=== PATIENT | male | born 1955 | race Caucasian/White ===

== ENCOUNTER → 2016-06-18 | Outpatient (REF) ==
[~2016-06-18] MED LIST: HCT25T PO; LISI40TA PO; VERA40TA2 PO
--- NOTE | 2016-06-18 17:20 | Diagnostic Imaging Report ---
PROCEDURE: MRI left joint lower extremity without contrast. TECHNIQUE: Multiplanar, multisequence non contrast-enhanced MRI of the left lower extremity was accomplished. INDICATION: Left knee pain. FINDINGS: There is a small suprapatellar effusion. There is a East's cyst measuring 3.2 x 0.8 x 4.6 cm with mild septation and loculation seen superiorly. The distal patellar tendon demonstrates ossification with increased signal suggestive of an old injury and tendinosis. There is tendinosis in the distal quadriceps tendon. The ACL and the PCL are both intact. There is a complex tear involving the posterior horn of the medial meniscus with some extension into the posterior aspect of the body of the meniscus. The anterior horn is intact. The lateral meniscus demonstrates no definite tear. There are intact appearing components of the lateral collateral ligament complex. The medial collateral ligament demonstrates mild thickening with no definite tear. This is probably sequela of an old injury. Near complete loss of cartilage in the patella along the lateral facet and at the mid portion is seen with relatively preserved cartilage in the medial facet. Subchondral reactive changes are seen in the lateral and mid aspects of the patella and along the femoral trochlea correlating region. The medial compartment demonstrates generalized approximately 50% narrowing of the cartilage, and relatively preserved cartilage is seen at the lateral compartment. There is abnormal marrow signal in the tibial spine along the insertion of the ACL. This could be injury related or from mucinous degeneration. IMPRESSION: 1. 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 2. Complex tear in the posterior horn of the medial meniscus extending to the meniscus body. 3. Bone marrow edema in the tibial spine along the ACL insertion could be post traumatic. Dictated by: Dictated on workstation # [id number]
== END | disposition home or self-care (01) ==
LOC: RAD 16:07
PROVIDERS: ATTEND Nurse Practitioner Family
CPT/HCPCS: 73721

== ENCOUNTER 2018-01-15 07:29 | Emergency (ER) | payer BC, OTHER ==
[~2018-01-15] VITALS: Ht 177.8 cm; Wt 108.0 kg
[2018-01-15] MEDS ORDERED: NITROGLYCERIN 0.4 MG SL TABS BTL 25'S SL ONE (07:35)
[2018-01-15] MEDS ORDERED: ASPIRIN 81 MG CHEW (CHILDREN'S ASA) ONE (07:36)
--- NOTE | 2018-01-15 07:38 | ED Chest Pain ---
General Chief Complaint: Chest Pain Stated Complaint: CP Source: patient, other Exam Limitations: no limitations History of Present Illness Date Seen by Provider: Jan 15, 2018 Time Seen by Provider: 07:26 Initial Comments Patient presents the ER by private conveyance with a chief complaint of some chest pain substernal nonradiating with pressure and burning sensation that started around midnight last night. He says he's had this before similar to this and he thought it was indigestion so he took some Pepcid and it did not help. His pain continued to get worse and is having a little shortness of breath , sweats and nausea with one episode of vomiting. He does take 81 mg aspirin daily and has a history of hypertension. He quit smoking in the 70s. He does not have hypothyroidism, hypercholesterolemia, history of coronary artery disease or significant family history. Other than the Pepcid this morning he has not taken anything medicine breen. Allergies and Home Medications Allergies Coded Allergies: No Known Drug Allergies (Unverified , 06/18/11) Home Medications Hydrochlorothiazide 25 Mg Tab, 25 MG PO DAILY, (Reported) Verapamil Hcl 40 Mg Tablet, 1 EA PO DAILY, (Reported) Patient Home Medication List Home Medication List Reviewed: Yes Review of Systems Constitutional: No chills; diaphoresis; No fever, No malaise EENTM: No Blurred Vision, No Double Vision Respiratory: Denies Cough, Denies Shortness of Air Cardiovascular: See HPI, Chest Pain; Denies Edema, Denies Irregular Heart Rate , Denies Palpitations, Denies Syncope Gastrointestinal: Denies Abdomen Distended, Denies Abdominal Pain, Denies Constipated, Denies Diarrhea Genitourinary: Denies Burning, Denies Discharge, Denies Drainage Musculoskeletal: No back pain, No joint pain Skin: No change in color, No dryness, No pruritus, No rash Psychiatric/Neurological: Denies Headache, Denies Numbness Past Nxvtxhs-Rfktvj-Dhoosx Hx Patient Social History Recreational Drug Use: No Smoking Status: Former Smoker Type Used: Cigarettes Physical Exam Vital Signs Vital Signs - First Documented 01/15/18 01/15/18 07:36 07:51 Temp 97.9 Pulse 60 Resp 20 B/P (MAP) 206/100 (135) Pulse Ox 97 O2 Delivery Room Air O2 Flow Rate 2.00 Capillary Refill : Height, Weight, BMI Height: '" Weight: lbs. oz. kg; BMI Method:Stated General Appearance: WD/WN, Mild Distress HEENT: PERRL/EOMI, Pharynx Normal, Moist Mucous Membranes Neck: Full Range of Motion, Normal Inspection Respiratory: Chest Non Tender, Lungs Clear, Normal Breath Sounds, No Accessory Muscle Use, No Respiratory Distress Cardiovascular: Regular Rate, Rhythm, No Edema, Normal Peripheral Pulses Gastrointestinal: Normal Bowel Sounds, No Organomegaly, Non Tender, Soft, Other (negative for Lundberg sign, psoas, other mesenteric signs.) Extremity: Normal Capillary Refill, Non Tender, No Calf Tenderness, No Pedal Edema Neurologic/Psychiatric: Alert, Oriented x3 Skin: Normal Color, Warm/Dry Progress/Results/Core Measures Results/Orders Lab Results Laboratory Tests Test 01/15/18 07:40 01/15/18 10:52 Range/Units White Blood Count 9.4 4.3-11.0 10^3/uL Red Blood Count 5.05 4.35-5.85 10^6/uL Hemoglobin 16.0 13.3-17.7 G/DL Hematocrit 43 40-54 % Mean Corpuscular Volume 86 80-99 FL Mean Corpuscular Hemoglobin 32 25-34 PG Mean Corpuscular Hemoglobin Concent 37 H 32-36 G/DL Red Cell Distribution Width 13.5 10.0-14.5 % Platelet Count 170 130-400 10^3/uL Mean Platelet Volume 11.9 H 7.4-10.4 FL Neutrophils (%) (Auto) 82 H 42-75 % Lymphocytes (%) (Auto) 11 L 12-44 % Monocytes (%) (Auto) 6 0-12 % Eosinophils (%) (Auto) 0 0-10 % Basophils (%) (Auto) 0 0-10 % Neutrophils # (Auto) 7.7 1.8-7.8 X 10^3 Lymphocytes # (Auto) 1.1 1.0-4.0 X 10^3 Monocytes # (Auto) 0.6 0.0-1.0 X 10^3 Eosinophils # (Auto) 0.0 0.0-0.3 10^3/uL Basophils # (Auto) 0.0 0.0-0.1 10^3/uL Prothrombin Time 13.8 12.2-14.7 SEC INR Comment 1.1 0.8-1.4 Activated Partial Thromboplast Time 30 24-35 SEC Sodium Level 139 135-145 MMOL/L Potassium Level 2.9 L 3.6-5.0 MMOL/L Chloride Level 99 98-107 MMOL/L Carbon Dioxide Level 28 21-32 MMOL/L Anion Gap 12 5-14 MMOL/L Blood Urea Nitrogen 17 7-18 MG/DL Creatinine 1.20 0.60-1.30 MG/DL Estimat Glomerular Filtration Rate > 60 BUN/Creatinine Ratio 14 Glucose Level 172 H 70-105 MG/DL Calcium Level 10.4 H 8.5-10.1 MG/DL Corrected Calcium 8.5-10.1 MG/DL Magnesium Level 2.1 1.8-2.4 MG/DL Total Bilirubin 1.3 H 0.1-1.0 MG/DL Aspartate Amino Transf (AST/SGOT) 38 H 5-34 U/L Alanine Aminotransferase (ALT/SGPT) 55 0-55 U/L Alkaline Phosphatase 78 40-136 U/L Myoglobin 86.2 10.0-92.0 NG/ML Troponin I < 0.30 < 0.30 <0.30 NG/ML Total Protein 8.4 H 6.4-8.2 GM/DL Albumin 4.9 H 3.2-4.5 GM/DL Lipase 14 8-78 U/L My Orders Orders - JOSE ANTONIO,CINDY J Cbc With Automated Diff (01/15/18 07:35) Magnesium (01/15/18 07:35) Chest 1 View, Ap/Pa Only (01/15/18 07:35) Ekg Tracing (01/15/18 07:35) Cardiac Profile 1 (01/15/18 07:35) Comprehensive Metabolic Panel (01/15/18 07:35) Myoglobin Serum (01/15/18 07:35) Protime With Inr (01/15/18 07:35) Partial Thromboplastin Time (01/15/18 07:35) O2 (01/15/18 07:35) Monitor-Rhythm Ecg Trace Only (01/15/18 07:35) Lipid Panel (01/16/18 06:00) Aspirin Chewable Tablet (Baby Aspirin Ch (01/15/18 07:45) Nitroglycerin 0.4 Mg Btl 25's (Nitrostat (01/15/18 07:45) Saline Lock/Iv-Start (01/15/18 07:35) Lipase (01/15/18 07:35) Ondansetron Injection (Zofran Injectio (01/15/18 07:45) Nitroglycerin 0.4 Mg Btl 25's (Nitrostat (01/15/18 07:35) Aspirin Chewable Tablet (Baby Aspirin Ch (01/15/18 07:36) Saline Lock/Iv-Start (01/15/18 07:54) Ns Iv 500 Ml (Sodium Chloride 0.9%) (01/15/18 07:54) Hydralazine Injection (Apresoline Inject (01/15/18 08:15) Labetalol Injection (Normodyne Injection (01/15/18 08:15) Potassium Chloride (Tablet) (K Dur Table (01/15/18 08:30) Potassium Cl 10meq/50ml Ivpb (Kcl 10 Meq (01/15/18 08:30) Ct Angio Chest W (01/15/18 08:17) Iohexol Injection (Omnipaque 350 Mg/Ml 1 (01/15/18 08:45) Ns (Ivpb) (Sodium Chloride 0.9%) (01/15/18 08:45) Pharmacy Communication (Pharmacy Communi (01/15/18 08:45) Lidocaine 2% Viscous 15 Ml (Xylocaine Vi (01/15/18 09:45) Antacid Suspension (Mylanta Suspension (01/15/18 09:45) Famotidine Tablet (Pepcid Tablet) (01/15/18 09:38) Troponin I (01/15/18 10:20) Medications Given in ED Current Medications Medications Dose Ordered Sig/Mallory Route Start Time Stop Time Status Last Admin Dose Admin Al Hydrox/Mg Hydrox/Simethicone 30 ml ONCE ONCE PO 01/15/18 09:45 01/15/18 09:46 DC 01/15/18 09:47 30 ML Aspirin 81 mg STK-MED ONCE .ROUTE 01/15/18 07:36 01/15/18 07:38 DC 01/15/18 07:38 81 MG Hydralazine HCl 10 mg ONCE ONCE IV 01/15/18 08:15 01/15/18 08:16 DC 01/15/18 08:20 10 MG Iohexol 125 ml ONCE ONCE IV 01/15/18 08:45 01/15/18 08:47 DC 01/15/18 09:24 125 ML Labetalol HCl 10 mg ONCE ONCE IV 01/15/18 08:15 01/15/18 08:16 DC 01/15/18 08:20 10 MG Lidocaine HCl 15 ml ONCE ONCE PO 01/15/18 09:45 01/15/18 09:46 DC 01/15/18 09:47 15 ML Nitroglycerin 0.4 mg STK-MED ONCE SL 01/15/18 07:35 01/15/18 07:38 DC 01/15/18 07:39 0.4 MG Ondansetron HCl 4 mg ONCE ONCE IVP 01/15/18 07:45 01/15/18 07:46 DC 01/15/18 07:44 4 MG Potassium Chloride 20 meq ONCE ONCE PO 01/15/18 08:30 01/15/18 08:31 DC 01/15/18 08:30 20 MEQ Potassium Chloride 50 ml @ 50 mls/hr ONCE ONCE IV 01/15/18 08:30 01/15/18 09:29 DC 01/15/18 08:30 50 MLS/HR Sodium Chloride 250 ml ONCE ONCE IV 01/15/18 08:45 01/15/18 08:47 DC 01/15/18 09:24 80 ML Sodium Chloride 500 ml @ 0 mls/hr Q0M ONCE IV 01/15/18 07:54 01/15/18 07:55 DC 01/15/18 08:01 500 MLS/HR Vital Signs/I&O 01/15/18 01/15/18 01/15/18 01/15/18 07:36 07:38 07:51 08:50 Temp 97.9 97.9 Pulse 60 Resp 20 B/P (MAP) 206/100 (135) Pulse Ox 97 97 O2 Delivery Room Air Nasal Cannula Nasal Cannula O2 Flow Rate 2.00 2.0 Progress Progress Note #1: Time: 07:40 Progress Note We'll give him 324 mg aspirin, nitroglycerin to start and if that does not help we'll consider a GI cocktail. He does have several risk factors but his pain isn 't going on since midnight. EKG is unremarkable right now so we will see what the troponin shows. We'll get a chest x-ray. No recent surgeries or periods of immobilization nor is he having hemoptysis or cough or shortness of breath and he is 100% sat on room air so a pulmonary embolism as clinically very unlikely. He has a history of hypertension and smoking so AAA is always possible. Top and the differential be a cardiogenic source versus gastroesophageal distress. He does not have any history of pulmonary disease sweats less likely source of his pain. This chest wall is nontender to palpation so musculoskeletal also less likely. ED ACS 19 points. Not low risk. This patient is not a candidate for early discharge and should receive a standard chest pain evaluation with delayed troponin testing. 0748: After the first dose of nitroglycerin his blood pressures down from 206 systolic to 174 systolic and his pain is down from a 10 to a 5. We are going to give him a second dose of nitroglycerin. His chest x-ray reveals a very widened mediastinum which is concerning for AAA. There is no previous chest imaging to compare to so we will plan to get a CT angiogram of the chest soon as we get his creatinine function back. We will start with a half liter bolus to help dilute the contrast. Despite his heart rate being 55 beta tony still hour first choice to control his hypertension. Plan to give him labetalol 10 mg. If he is having aortic dissection that our goal would be to get his blood pressure down around 100 systolic and it is currently 157. His pain is now effectively 0 after the second dose of nitroglycerin. No evidence on the CBC or clinical exam of extravasation. Progress Note #2: Time: 10:01 Progress Note The GI cocktail did help the patient's pain significantly. He said his pain also in his belly and chest Better when he got up and walked to the bathroom and back. He says it is starting to come back a little bit low in his belly. He describes it as a burning sensation. Initial ECG Impression Date: Jan 15, 2018 Initial ECG Impression Time: 07:32 Initial ECG Rate: 60 Initial ECG Rhythm: Normal Sinus Initial ECG Intervals: Normal Initial ECG Impression: Normal Initial ECG Comparisson: Unchanged Comment No acute ST elevation or depression. Diagnostic Imaging Diagonstic Imaging: Xray Plain Films/CT/US/NM/MRI: chest (1v) Comments Cardiomegaly and a prominent mediastinum. [facility] [place], [place] NAME: CARITO LANCASTER [facility] REC#: [id number] PT STATUS: REG ER : 1955 PHYSICIAN: CINDY BRADY MD ADMIT DATE: 01/15/18/ER Draft Date of Exam:01/15/18 CHEST 1 VIEW, AP/PA ONLY INDICATION: Chest pain. Nausea, sweats. TECHNIQUE: Single view chest 7:51 AM. CORRELATION STUDY: None FINDINGS: Heart size enlarged and vasculature within normal limits. Question of slight fullness to the right paramediastinal region superiorly. Minimal atelectasis or less likely infiltrate at the right perihilar region. IMPRESSION: 1. Cardiac enlargement without evidence for failure. 2. Questionable soft tissue density of the right superior paramediastinal region. This may reflect ectatic vessels. Would, however, recommend a followup two-view chest imaging for reassessment. 3. Minimal right perihilar atelectasis. Dictated on workstation # [id number] Dict: 01/15/18 0800 Trans: 01/15/[address] [place] [address] [id number] Interpreted by: DEJUAN JON DO Electronically signed by: Reviewed: Reviewed by Nd Diagonstic Imaging: CT (angio) Plain Films/CT/US/NM/MRI: chest Comments VIA [facility]. [place], [place] NAME: CARITO LANCASTER [facility] REC#: [id number] PT STATUS: REG ER : 1955 PHYSICIAN: CINDY BRADY MD ADMIT DATE: 01/15/18/ER Draft Date of Exam:01/15/18 CT ANGIO CHEST W PROCEDURE: CT angiography of the chest with contrast. TECHNIQUE: Multiple contiguous axial images were obtained through the chest after uneventful bolus administration of intravenous contrast. Reconstructed CTA MIP acquisitions were also performed. INDICATION: Chest pain and abdominal pain. No prior studies are available for comparison. Evaluation of the pulmonary arterial system is without evidence of thromboembolism. No filling defects are seen within the central, lobar or segmental branches. The thoracic aorta is normal caliber. No dissection is seen. No pericardial or pleural fluid is identified. No pulmonary infiltrate, nodule or mass is seen. Central airways are unremarkable. Upper abdomen does show hepatic steatosis. No other abnormality is seen. IMPRESSION: 1. No evidence of pulmonary embolism or thoracic aortic dissection. No acute features seen. 2. Hepatic steatosis. Dictated on workstation # [id number] Dict: 01/15/18937 Trans: 01/15/18942 [facility] [id number] Interpreted by: RAMIREZ GUTIÉRREZ MD Electronically signed by: Reviewed: Reviewed by Me Consults : Consulting Physician: Gerry LLAMAS MD Consults Notes After discussing lab EKG imaging he requests a repeat set of troponins and if they're negative just follow up in the clinic. Departure Communication (Admissions) Discussed case lab imaging findings EKG with Dr. Llamas. Impression Primary Impression: Chest pain Qualified Codes: R07.9 - Chest pain, unspecified Disposition: HOME, SELF-CARE Condition: Stable Admissions Decision to Admit Reason: Admit from ER (General) Decision to Admit/Date: Jan 15, 2018 Time/Decision to Admit Time: 09:57 Departure-Patient Inst. Decision time for Depature: 12:07 Referrals: ISABEL CHAND (PCP) Primary Care Physician Gerry LLAMAS MD Patient Instructions: Chest Pain (DC) Add. Discharge Instructions: Follow-up the purchasing officer outpatient by calling his office today to get an appointment. Continue to take your medications for blood pressure. Return to the ER for chest pain shortness breath etc. All discharge instructions reviewed with patient and/or family. Voiced understanding. Copy Copies To 1: Gerry LLAMAS MD, TITUS J Jan 15, 2018 07:37
[2018-01-15] MEDS ORDERED: ONDANSETRON 4 MG/2 ML (SDV) Z0FRAN IVP ONE (07:45)
[2018-01-15] MEDS ORDERED: NITROGLYCERIN 0.4 MG SL TABS BTL 25'S SL PRN (07:45)
[2018-01-15] MEDS ORDERED: ASPIRIN 81 MG CHEW (CHILDREN'S ASA) PO ONE (07:45)
[2018-01-15 07:51] LABS: BASOPHILS % (AUTO) 0 % (0-10); EOSINOPHILS % (AUTO) 0 % (0-10); HEMATOCRIT 43 % (40-54); LYMPHOCYTES # (AUTO) 1.1 X 10^3 (1.0-4.0); LYMPHOCYTES % (AUTO) 11 % (12-44); MEAN CORPUSCULAR HEMOGLOBIN 32 PG (25-34); MEAN CORPUSCULAR HGB CONC 37 G/DL (32-36); MEAN CORPUSCULAR VOLUME 86 FL (80-99); MEAN PLATELET VOLUME 11.9 FL (7.4-10.4); MONOCYTES # (AUTO) 0.6 X 10^3 (0.0-1.0); MONOCYTES % (AUTO) 6 % (0-12); NEUTROPHILS # (AUTO) 7.7 X 10^3 (1.8-7.8); NEUTROPHILS % (AUTO) 82 % (42-75); PLATELET COUNT 170 10^3/uL (130-400); RED BLOOD COUNT 5.05 10^6/uL (4.35-5.85); RED CELL DISTRIBUTION WIDTH 13.5 % (10.0-14.5); WHITE BLOOD COUNT 9.4 10^3/uL (4.3-11.0)
[2018-01-15] MEDS ORDERED: NS IV 500 ML 500 ML IV ONE (07:54)
[2018-01-15 08:03] LABS: INR 1.1 (0.8-1.4); PROTHROMBIN TIME PATIENT 13.8 SEC (12.2-14.7)
[2018-01-15 08:07] LABS: ALANINE AMINOTRANSFERASE 55 U/L (0-55); ALBUMIN 4.9 GM/DL (3.2-4.5); ALKALINE PHOSPHATASE 78 U/L (40-136); BILIRUBIN,TOTAL 1.3 MG/DL (0.1-1.0); BUN/CREATININE RATIO 14; CALCIUM 10.4 MG/DL (8.5-10.1); CARBON DIOXIDE 28 MMOL/L (21-32); CHLORIDE 99 MMOL/L (98-107); GFR ESTIMATED > 60; GLUCOSE 172 MG/DL (70-105); LIPASE 14 U/L (8-78); MAGNESIUM 2.1 MG/DL (1.8-2.4); POTASSIUM 2.9 MMOL/L (3.6-5.0); SODIUM 139 MMOL/L (135-145); TOTAL PROTEIN 8.4 GM/DL (6.4-8.2)
--- NOTE | 2018-01-15 08:11 | Diagnostic Imaging Report ---
INDICATION: Chest pain. Nausea, sweats. TECHNIQUE: Single view chest 7:51 AM. CORRELATION STUDY: None FINDINGS: Heart size enlarged and vasculature within normal limits. Question of slight fullness to the right paramediastinal region superiorly. Minimal atelectasis or less likely infiltrate at the right perihilar region. IMPRESSION: 1. Cardiac enlargement without evidence for failure. 2. Questionable soft tissue density of the right superior paramediastinal region. This may reflect ectatic vessels. Would, however, recommend a followup two-view chest imaging for reassessment. 3. Minimal right perihilar atelectasis. Dictated by: Dictated on workstation # [id number]
[2018-01-15 08:14] LABS: MYOGLOBIN SERUM 86.2 NG/ML (10.0-92.0)
[2018-01-15] MEDS ORDERED: hydrALAZINE (APESOLINE) 20 MG/ML VIAL IV ONE (08:15)
[2018-01-15] MEDS ORDERED: LABETALOL HCL 20 MG/4 ML VIAL IV ONE (08:15)
[2018-01-15] MEDS ORDERED: KCL 20 MEQ TAB (K-DUR) PO ONE (08:30)
[2018-01-15] MEDS ORDERED: POTASSIUM CL 10MEQ/50ML IVPB 50 ML IV ONE (08:30)
[2018-01-15] MEDS ORDERED: NS 250 ML (IVPB) BAG IV ONE (08:45)
[2018-01-15] MEDS ORDERED: IOHEXOL 350 MG/ML 150 ML (OMNIPAQUE 350) VIAL IV ONE (08:45)
[2018-01-15] MEDS ORDERED: FAMOTIDINE 20 MG (PEPCID) TABLET PO STA (09:38)
--- NOTE | 2018-01-15 09:43 | Diagnostic Imaging Report ---
PROCEDURE: CT angiography of the chest with contrast. TECHNIQUE: Multiple contiguous axial images were obtained through the chest after uneventful bolus administration of intravenous contrast. Reconstructed CTA MIP acquisitions were also performed. INDICATION: Chest pain and abdominal pain. No prior studies are available for comparison. Evaluation of the pulmonary arterial system is without evidence of thromboembolism. No filling defects are seen within the central, lobar or segmental branches. The thoracic aorta is normal caliber. No dissection is seen. No pericardial or pleural fluid is identified. No pulmonary infiltrate, nodule or mass is seen. Central airways are unremarkable. Upper abdomen does show hepatic steatosis. No other abnormality is seen. IMPRESSION: 1. No evidence of pulmonary embolism or thoracic aortic dissection. No acute features seen. 2. Hepatic steatosis. Dictated by: Dictated on workstation # [id number]
[2018-01-15] MEDS ORDERED: ANTACID SUSP 30 ML UDC (MYLANTA) PO ONE (09:45)
[2018-01-15] MEDS ORDERED: LIDOCAINE 2% VISCOUS 15 ML UDC PO ONE (09:45)
[2018-01-15 12:17] VITALS: BP 169/83
== END 2018-01-15 12:17 | disposition home or self-care (01) ==
LOC: EDUNIT# 07:29 → ER 07:32
DX: R07.81 Pleurodynia (principal); I10 Essential (primary) hypertension; Z79.82 Long term (current) use of aspirin; Z87.891 Personal history of nicotine dependence
CPT/HCPCS: 36415; 71045; 71275; 80053; 83690; 83735; 83874; 84484; 85025; 85610; 85730; 93005; 93041; 96361; 96365; 96375

== ENCOUNTER → 2018-02-17 | Outpatient (CLI) | payer BC, OTHER | LOC: CARD 08:32 | PROVIDERS: ATTEND Internal Medicine Cardiovascular Disease | DX: R07.89 Other chest pain (principal); I10 Essential (primary) hypertension; E66.9 Obesity, unspecified; Z82.49 Family history of ischemic heart disease and other diseases of the circulatory system | CPT/HCPCS: 93306 ==

== ENCOUNTER → 2018-02-22 | Outpatient (CLI) | payer BC, OTHER ==
[~2018-02-22] MED LIST changes: +CATHETER FLUSH 10 ML SYR IV PRN; +REGADENOSON 0.4 MG/5 ML SYR (LEXISCAN) IV ONE
[2018-02-22 09:41] VITALS: BP 216/105
--- NOTE | 2018-02-22 13:03 | STRESS TEST ---
DATE OF SERVICE: 02/22/2018 LEXISCAN MYOVIEW STRESS TEST REPORT REFERRING PHYSICIAN: No local physician. Baseline heart rate is 53. Baseline blood pressure 216/105. Baseline EKG is sinus rhythm with no ischemic changes. In summary, the patient was injected with 10.33 mCi of technetium-99 Myoview and the resting images were obtained. Then, the patient received 0.4 mg of Lexiscan followed by 30.1 mCi of technetium-99 Myoview. Throughout the test, there were no EKG changes. The resting and stress images were reviewed and compared in the short axis, horizontal long axis, and vertical long axis views. Review of the images showed good radiotracer uptake with diaphragmatic attenuation with no significant ischemia or infarction. SSS is 1, SDS 1, TID value 1.07. On the gated images, the left ventricle appeared to be in normal size with normal contractility. Calculated ejection fraction 62%. CONCLUSION: 1. The patient tolerated Lexiscan well. 2. Baseline hypertension persisted throughout test. 3. No significant ischemia or infarction on SPECT images. 4. Normal left ventricular size with normal contractility. Calculated ejection fraction 62%. Job ID: [id number] DocumentID: [id number] Dictated Date: 02/22/2018 12:02:55 Quotation Clerk Date: 02/22/2018 13:02:33 Dictated By: BRAVO CLARK MD
== END ==
LOC: CARD 07:25
PROVIDERS: ATTEND Internal Medicine Cardiovascular Disease
DX: I10 Essential (primary) hypertension (principal); R07.89 Other chest pain; E66.9 Obesity, unspecified; Z82.49 Family history of ischemic heart disease and other diseases of the circulatory system
CPT/HCPCS: 78452; 93017

== ENCOUNTER 2020-11-07 01:39 | Emergency (ER) | payer OTHER ==
[~2020-11-07] VITALS: Ht 180 cm; Wt 101.3 kg
[~2020-11-07 01:39] MED LIST changes: -CATHETER FLUSH 10 ML SYR IV PRN; -REGADENOSON 0.4 MG/5 ML SYR (LEXISCAN) IV ONE
[2020-11-07] MEDS ORDERED: ceFAZolin INJECTION 1,000 MG in WATER (STERILE) FOR INJECTION 10 ML IV ONE (01:45)
[2020-11-07] MEDS ORDERED: LACTATED RINGERS 1,000 ML IV ONE (01:45)
[2020-11-07] MEDS ORDERED: TETANUS,DIPTH,PERTUSS P/F (BOOSTRIX) 0.5 ML VIAL IM ONE (01:45)
[2020-11-07 01:52] LABS: BASOPHILS # (AUTO) 0.1 10^3/uL (0.0-0.1); BASOPHILS % (AUTO) 1 % (0-10); EOSINOPHILS # (AUTO) 0.2 10^3/uL (0.0-0.3); EOSINOPHILS % (AUTO) 2 % (0-10); HEMATOCRIT 44 % (40-54); HEMOGLOBIN 15.9 g/dL (13.3-17.7); LYMPHOCYTES # (AUTO) 3.1 10^3/uL (1.0-4.0); LYMPHOCYTES % (AUTO) 35 % (12-44); MEAN CORPUSCULAR HEMOGLOBIN 31 pg (25-34); MEAN CORPUSCULAR HGB CONC 36 g/dL (32-36); MEAN CORPUSCULAR VOLUME 87 fL (80-99); MEAN PLATELET VOLUME 12.5 fL (9.0-12.2); MONOCYTES # (AUTO) 0.8 10^3/uL (0.0-1.0); MONOCYTES % (AUTO) 10 % (0-12); NEUTROPHILS # (AUTO) 4.7 10^3/uL (1.8-7.8); NEUTROPHILS % (AUTO) 53 % (42-75); PLATELET COUNT 195 10^3/uL (130-400); WHITE BLOOD COUNT 8.9 10^3/uL (4.3-11.0)
--- NOTE | 2020-11-07 01:55 | ED Trauma-Multisystem ---
General Stated Complaint: FALL Source of Information: Patient, EMS History of Present Illness Date Seen by Provider: Nov 07, 2020 Time Seen by Provider: 01:39 Initial Comments PT ARRIVES VIA EMS FROM HOME PT WALKING IN FROM THE AMBULANCE JUST PRIOR TO ARRIVAL, PT GOT UP TO GO TO THE BATHROOM, AND TRIPPED AND FELL, AND LANDED ON HIS BACK, DIRECTLY ON A SET OF 8 POINT DEER ANTLERS THAT WERE LAYING ON THE FLOOR--IMPALED HIMSELF ON ONE OF THE LARGEST POINTS IN LEFT LOWER BACK--APPEARS TO BE EMBEDDED AT LEAST 8 CM NO PARESTHESIAS OR MOTOR DEFICITS NO BLEEDING PT STATES IT DOES NOT REALLY HURT, AND DECLINES PAIN MEDICATION LAST TETANUS VACCINATION IS UNKNOWN PCP: CHANDAN-YAMILET Allergies and Home Medications Allergies Coded Allergies: No Known Drug Allergies (Unverified , 06/18/11) Home Medications Hydrochlorothiazide 25 Mg Tab, 25 MG PO DAILY, (Reported) Naproxen 500 Mg Tablet.dr, 500 MG PO BID Prescribed by: JUANCARLOS THOMASON on 11/07/20337 Sulfamethoxazole/Trimethoprim 1 Each Tablet, 1 EACH PO BID Prescribed by: JUANCARLOS THOMASON on 11/07/20337 Tramadol HCl 50 Mg Tablet, 50 MG PO Q6H PRN for PAIN Prescribed by: JUANCARLOS THOMASON on 11/07/20337 Verapamil Hcl 40 Mg Tablet, 1 EA PO DAILY, (Reported) Patient Home Medication List Home Medication List Reviewed: Yes Review of Systems Review of Systems Constitutional: no symptoms reported Respiratory: no symptoms reported Cardiovascular: No Symptoms Reported Gastrointestinal: no symptoms reported Musculoskeletal: see HPI Skin: see HPI Psychiatric/Neurological: No Symptoms Reported Past Xmaonaa-Ifzkbr-Jpervq Hx Past Med/Social Hx: Reviewed and Corrections made Patient Social History Alcohol Use: Denies Use Smoking Status: Former Smoker Type Used: Cigarettes Former Smoker, Quit: Jan 06, 1978 Recent Hopitalizations: No Seasonal Allergies Seasonal Allergies: Yes Past Medical History Surgeries: No Respiratory: No Cardiac: Yes High Cholesterol, Hypertension Neurological: No Genitourinary: No Gastrointestinal: Yes Gastroesophageal Reflux Musculoskeletal: No Endocrine: No HEENT: No Cancer: No Psychosocial: Yes Anxiety Integumentary: No Blood Disorders: No Physical Exam Vital Signs Vital Signs - First Documented 11/07/20 11/07/20 01:44 03:50 Temp 36.7 Pulse 60 Resp 17 B/P (MAP) 208/90 (129) Pulse Ox 98 O2 Delivery Room Air Height, Weight, BMI Height: 5'10.00" Weight: 238lbs. oz. 107.208185ob; BMI Method:Stated General Appearance: No Apparent Distress, WD/WN Neck: Normal Inspection Cardiovascular: Regular Rate, Rhythm, No Murmur, Normal Peripheral Pulses Respiratory: Normal Breath Sounds, No Accessory Muscle Use, No Respiratory Distress Gastrointestinal: Non Tender, Soft Back: Other (LARGE POINT OF DEER ANTLER EMBEDDED IN LEFT LOWER BACK, AT LEAST 8 CM EMBEDDED WITH DIAMETER OF THE ANTLER POINT AT LEAST 2.5 CM --ENTIRE ANTLER RACK IS STILL INTACT. MINOR ABRASION BELOW THE ENTRANCE WOUND) Procedures/Interventions I&D : Progress AREA OF IMPALED DEER ANTLER TO LEFT LOWER BACK CLEANSED WITH ALCOHOL, INJECTED WITH 1% LIDOCAINE ANTLER WAS REMOVED INTACT WOUND PROFUSELY IRRIGATED WITH 2 LITERS OF SALINE WITH SURGICAL SCRUB WOUND PACKED WITH 1/4" IODOFORM GAUZE DRESSED WITH ABD DRESSING PT TOLERATED WELL Progress/Results/Core Measures Results/Orders Lab Results Laboratory Tests Test 11/07/20 01:47 Range/Units White Blood Count 8.9 4.3-11.0 10^3/uL Red Blood Count 5.11 4.30-5.52 10^6/uL Hemoglobin 15.9 13.3-17.7 g/dL Hematocrit 44 40-54 % Mean Corpuscular Volume 87 80-99 fL Mean Corpuscular Hemoglobin 31 25-34 pg Mean Corpuscular Hemoglobin Concent 36 32-36 g/dL Red Cell Distribution Width 13.3 10.0-14.5 % Platelet Count 195 130-400 10^3/uL Mean Platelet Volume 12.5 H 9.0-12.2 fL Immature Granulocyte % (Auto) 0 % Neutrophils (%) (Auto) 53 42-75 % Lymphocytes (%) (Auto) 35 12-44 % Monocytes (%) (Auto) 10 0-12 % Eosinophils (%) (Auto) 2 0-10 % Basophils (%) (Auto) 1 0-10 % Neutrophils # (Auto) 4.7 1.8-7.8 10^3/uL Lymphocytes # (Auto) 3.1 1.0-4.0 10^3/uL Monocytes # (Auto) 0.8 0.0-1.0 10^3/uL Eosinophils # (Auto) 0.2 0.0-0.3 10^3/uL Basophils # (Auto) 0.1 0.0-0.1 10^3/uL Immature Granulocyte # (Auto) 0.0 0.0-0.1 10^3/uL Sodium Level 142 135-145 MMOL/L Potassium Level 2.8 L 3.6-5.0 MMOL/L Chloride Level 100 98-107 MMOL/L Carbon Dioxide Level 27 21-32 MMOL/L Anion Gap 15 H 5-14 MMOL/L Blood Urea Nitrogen 17 7-18 MG/DL Creatinine 1.41 H 0.60-1.30 MG/DL Estimat Glomerular Filtration Rate 50 BUN/Creatinine Ratio 12 Glucose Level 130 H 70-105 MG/DL Calcium Level 9.4 8.5-10.1 MG/DL Corrected Calcium 9.2 8.5-10.1 MG/DL Total Bilirubin 1.1 H 0.1-1.0 MG/DL Aspartate Amino Transf (AST/SGOT) 35 H 5-34 U/L Alanine Aminotransferase (ALT/SGPT) 29 0-55 U/L Alkaline Phosphatase 98 40-136 U/L Total Protein 7.6 6.4-8.2 GM/DL Albumin 4.3 3.2-4.5 GM/DL My Orders Orders - JUANCARLOS THOMASON DO Cbc With Automated Diff (11/07/20 01:42) Comprehensive Metabolic Panel (11/07/20 01:42) Ct Abdomen/Pelvis W (11/07/20 01:42) Ed Iv/Invasive Line Start (11/07/20 01:42) Lactated Ringers (Lr 1000 Ml Iv Solution (11/07/20 01:45) Dipht,Pertuss(Acell),Tet Adult (Boostrix (11/07/20 01:45) Cefazolin Injection (Ancef Injection) (11/07/20 01:45) Iohexol Injection (Omnipaque 350 Mg/Ml 1 (11/07/20 02:15) Received Contrast (Hold Metformin- Contr (11/07/20 02:15) Sodium Chloride Flush (Catheter Flush Sy (11/07/20 02:15) Ns (Ivpb) (Sodium Chloride 0.9% Ivpb Bag (11/07/20 02:15) 06/09 Ns W/Kcl 20 Meq/L (0.45% Sodium Chlo (11/07/20 02:45) Lidocaine 2% Injection 20 Ml (Xylocaine (11/07/20 03:15) Lidocaine 1% Inj 20 Ml (Xylocaine 1% Inj (11/07/20 02:59) Potassium Chloride (Tablet) (Klor Con Ta (11/07/20 03:45) Rx-Trimeth/Sulfameth Ds Tab (Rx-Bactrim/ (11/07/20 03:38) Rx-Naproxen (Rx-Naprosyn) (11/07/20 03:38) Rx-Tramadol Hcl (Rx-Ultram) (11/07/20 03:38) Ed Iv/Invasive Line Start (11/07/20 03:55) Ns Iv 1000 Ml (Sodium Chloride 0.9%) (11/07/20 04:00) Medications Given in ED Current Medications Medications Dose Ordered Sig/Mallory Route Start Time Stop Time Status Last Admin Dose Admin Cefazolin Sodium 1000 mg/Sterile Water 10 ml @ 200 mls/hr ONCE ONCE IV 11/07/20 01:45 11/07/20 01:47 DC 11/07/20 02:27 200 MLS/HR Diphtheria/ Tetanus/Acell Pertussis 0.5 ml ONCE ONCE IM 11/07/20 01:45 11/07/20 01:47 DC 11/07/20 02:28 0.5 ML Iohexol 100 ml ONCE ONCE IV 11/07/20 02:15 11/07/20 02:16 DC 11/07/20 02:17 100 ML Lactated Ringer's 1,000 ml @ 0 mls/hr Q0M ONCE IV 11/07/20 01:45 11/07/20 01:47 DC 11/07/20 02:27 0 MLS/HR Potassium Chloride 40 meq ONCE ONCE PO 11/07/20 03:45 11/07/20 03:46 DC 11/07/20 03:40 40 MEQ Sodium Chloride 10 ml NEEDED PRN IV 11/07/20 02:15 11/07/20 03:50 DC 11/07/20 02:17 10 ML Sodium Chloride 100 ml ONCE ONCE IV 11/07/20 02:15 11/07/20 02:16 DC 6/2/21 02:17 80 ML Vital Signs/I&O 11/07/20 11/07/20 11/07/20 01:44 02:08 03:50 Temp 36.7 37.0 Pulse 60 Resp 17 18 B/P (MAP) 208/90 (129) 193/98 Pulse Ox 98 98 98 O2 Delivery Room Air Room Air Room Air Progress Progress Note : Progress Note PT DECLINES ANY PAIN MEDICATION GIVEN ANCEF AND TETANUS VACCINATION PT STATES BP IS ALWAYS HIGH Diagnostic Imaging Comments CT ABDOMEN/PELVIS--EMBEDDED FOREIGN BODY EXTENDS INTO THE SUPERIOR LEFT GLUTEAL REGION AND INFERIOR LEFT FLANK WITH ANTLER TIP ADJACENT TO SUPERFICIAL LATERAL MARGIN OF LEFT PARASPINAL MUSCULATURE. NO SIGNIFICANT EXTENSION INTO MUSCULATURE OR RETROPERITONEAL SPACE. SUB Q FAT STRANDING ADJACENT TO AND INFERIOR TO THE EMBEDDED FOREIGN BODY. NO WELL DEFINED HEMATOMA. NO SIGNIFICANT EXTRAVASATION. LEFT KIDNEY IS INTACT WITHOUT TRAUMATIC INJURY. NO RETROPERITONEAL ABNORMALITY. NO TRAUMATIC INJURY TO RENAL COLLECTING SYSTEM. PER [facility] VIA FAX AT 0255 Reviewed: Reviewed by [facility] Departure Communication (Admissions) 0137--CALLED DR. GEORGE, TRAUMA SURGEON, ON RECEIVING EMS CALL. WILL ACTIVATE LEVEL 2 TRAUMA. WILL UPDATE HIM WHEN PT ARRIVES 0143--SPOKE WITH DR. GEORGE, AWAIT CT REPORT 0213--SPOKE WITH DR. GEORGE. HE ADVISES TO REMOVE THE ANTLER, IRRIGATE, PACK IT, AND SEND HOME, AND HE WILL SEE PT IN FOLLOW UP IN OFFICE. Impression Primary Impression: Impalement of back by foreign body Additional Impressions: Lejihlwycx-nrnbrxlat-sqlejnl (DPT) vaccination administered at current visit Hypokalemia HTN (hypertension) Disposition: 01 HOME, SELF-CARE Condition: Improved Departure-Patient Inst. Decision time for Depature: 03:37 Referrals: KATHY GEORGE,LOCAL PHYSICIAN (PCP) Primary Care Physician Patient Instructions: Hypokalemia (DC), Wound Care (DC) Add. Discharge Instructions: LEAVE DRESSING AND PACKING IN PLACE--DO NOT GET WET ICE TO AREA AT 20 MINUTE INTERVALS FOLLOW UP WITH DR. GEORGE TOMORROW FOR FURTHER CARE Scripts Naproxen (Naproxen) 500 Mg Tablet. 500 MG PO BID, #20 TAB Prov: JUANCARLOS THOMASON DO 11/07/20 Tramadol HCl (Tramadol HCl) 50 Mg Tablet 50 MG PO Q6H PRN for PAIN for 3 Days, #20 TAB 0 Refills Prov: JUANCARLOS THOMASON DO 11/07/20 Sulfamethoxazole/Trimethoprim (Bactrim Ds Tablet) 1 Each Tablet 1 EACH PO BID, #20 TAB Prov: JUANCARLOS THOMASON DO 11/07/20 JUANCARLOS THOMASON DO Nov 07, 2020 01:55
[2020-11-07 02:03] LABS: ALBUMIN 4.3 GM/DL (3.2-4.5)
[2020-11-07 02:04] LABS: POTASSIUM 2.8 MMOL/L (3.6-5.0)
[2020-11-07 02:05] LABS: CALCIUM 9.4 MG/DL (8.5-10.1)
[2020-11-07 02:06] LABS: TOTAL PROTEIN 7.6 GM/DL (6.4-8.2)
[2020-11-07 02:08] LABS: BILIRUBIN,TOTAL 1.1 MG/DL (0.1-1.0)
[2020-11-07 02:10] LABS: CREATININE SERUM 1.41 MG/DL (0.60-1.30)
[2020-11-07] MEDS ORDERED: HOLD METFORMIN - RECEIVED CONTRAST 20 ML VIAL IV SCH (02:15)
[2020-11-07] MEDS ORDERED: IOHEXOL 350 MG/ML 100 ML (OMNIPAQUE 350) VIAL IV ONE (02:15)
[2020-11-07] MEDS ORDERED: NS 100 ML (IVPB) BAG IV ONE (02:15)
[2020-11-07] MEDS ORDERED: CATHETER FLUSH 10 ML SYR IV PRN (02:15)
[2020-11-07] MEDS ORDERED: 1/2 NS W/KCL 20 MEQ/L 1,000 ML IV SCH (02:45)
[2020-11-07] MEDS ORDERED: LIDOCAINE 1% INJ 20 ML 20 ML VIAL ONE (02:59)
[2020-11-07] MEDS ORDERED: LIDOCAINE 2% 20 ML (XYLOCAINE) VIAL INJ ONE (03:15)
[2020-11-07] MEDS ORDERED: TRM50T PO (03:38)
[2020-11-07] MEDS ORDERED: NAPR500T8 PO (03:38)
[2020-11-07] MEDS ORDERED: SULF1TAB35 PO (03:38)
[2020-11-07] MEDS ORDERED: RX-TRIMETH/SULFA. 160-800 MG (BACTRIM DS) TAB PPK#2 PO STA (03:38)
[2020-11-07] MEDS ORDERED: RX-NAPROXEN (NAPROSYN) 250 MG TAB PPK#4 PO STA (03:38)
[2020-11-07] MEDS ORDERED: KCL 10 MEQ TAB (MICRO K) PO ONE (03:45)
[2020-11-07 03:50] VITALS: BP 193/98
[2020-11-07] MEDS ORDERED: NS IV 1000 ML 1,000 ML IV SCH (04:00)
--- NOTE | 2020-11-07 08:40 | Diagnostic Imaging Report ---
PROCEDURE: CT abdomen and pelvis with contrast. TECHNIQUE: Multiple contiguous axial images were obtained through the abdomen and pelvis after administration of intravenous contrast. Auto Exposure Controls were utilized during the CT exam to meet ALARA standards for radiation dose reduction. All CT scans use one or more of the following dose optimizing techniques: automated exposure control, MA and/or KvP adjustment based on patient size and exam type or iterative reconstruction. INDICATION: Trauma, embedded antler foreign body into the back after a trip and fall. The lung bases are clear. The liver demonstrates mild generalized low density consistent with hepatic steatosis. Gallbladder contains a small stone. There is no biliary duct dilatation. Pancreas and spleen are unremarkable. No adrenal or renal injury is identified. There appears to be normal excretion of contrast from the renal collecting systems into the ureters. Urinary bladder is unremarkable. Aorta is partially calcified but nonaneurysmal. The bowel loops are normal caliber. Prostate is unremarkable. There is an embedded antler foreign body extending into the superior left gluteal tissues and inferior left flank. Annular tip is adjacent to the superficial lateral margin of the left paraspinal musculature. No definite extension into the musculature of the retroperitoneal space is identified. There is some stranding in the subcutaneous fat in the left gluteal region. No definite well-defined hematoma is seen. No evidence of active extravasation is identified. No fractures are seen. IMPRESSION: Embedded radiopaque antler foreign body is identified in the left superior gluteal and inferior left flank region with antler tip extending to the lateral margin of the left paraspinal musculature. There is no extension of the foreign body into the musculature of the retroperitoneal space. While there is some stranding of the fat in the left gluteal region no definite hematoma or evidence of active extravasation is detected. No solid organ injury is identified. Dictated by: Dictated on workstation # [id number]
== END 2020-11-07 03:50 | disposition home or self-care (01) ==
LOC: EDUNIT# 01:39 → ER 01:40
DX: S31.040A Puncture wound with foreign body of lower back and pelvis without penetration into retroperitoneum, initial encounter (principal); I10 Essential (primary) hypertension; E87.6 Hypokalemia; Z87.891 Personal history of nicotine dependence; Z23 Encounter for immunization; W45.8XXA Other foreign body or object entering through skin, initial encounter
CPT/HCPCS: 36415; 74177; 80053; 85025; 90715

== ENCOUNTER → 2021-01-01 | Outpatient (CLI) | payer OTHER ==
[~2021-01-01] MED LIST changes: +NAPR500T8 PO; +SULF1TAB38 PO; +TRM50T PO
== END | disposition home or self-care (01) ==
LOC: PREOP 05:40
PROVIDERS: ATTEND Surgery
DX: Z01.818 Encounter for other preprocedural examination (principal)

== ENCOUNTER 2021-10-03 11:42 | Observation (INO) | payer OTHER ==
[~2021-10-03] VITALS: Ht 177.8 cm; Wt 96.1 kg
[2021-10-03 12:03] LABS: BASOPHILS # (AUTO) 0.1 10^3/uL (0.0-0.1); BASOPHILS % (AUTO) 1 % (0-10); EOSINOPHILS # (AUTO) 0.1 10^3/uL (0.0-0.3); EOSINOPHILS % (AUTO) 1 % (0-10); HEMATOCRIT 47 % (40-54); HEMOGLOBIN 16.4 g/dL (13.3-17.7); LYMPHOCYTES # (AUTO) 2.5 10^3/uL (1.0-4.0); LYMPHOCYTES % (AUTO) 21 % (12-44); MEAN CORPUSCULAR HEMOGLOBIN 30 pg (25-34); MEAN CORPUSCULAR HGB CONC 35 g/dL (32-36); MEAN CORPUSCULAR VOLUME 87 fL (80-99); MEAN PLATELET VOLUME 12.6 fL (9.0-12.2); MONOCYTES # (AUTO) 1.2 10^3/uL (0.0-1.0); MONOCYTES % (AUTO) 10 % (0-12); NEUTROPHILS # (AUTO) 8.2 10^3/uL (1.8-7.8); NEUTROPHILS % (AUTO) 68 % (42-75); PLATELET COUNT 189 10^3/uL (130-400); WHITE BLOOD COUNT 12.1 10^3/uL (4.3-11.0)
[2021-10-03 12:14] LABS: ALBUMIN 4.6 GM/DL (3.2-4.5)
--- NOTE | 2021-10-03 12:14 | ED General ---
General Stated Complaint: ABNORMAL EKG Source of Information: Patient Exam Limitations: No Limitations History of Present Illness Date Seen by Provider: Oct 03, 2021 Time Seen by Provider: 12:11 Initial Comments To ER by private vehicle with reports of abnormal EKG. He went to [facility] due to left shoulder pain that began when he fell last night getting up at the auditorium and landed on his left shoulder. He has pain with any movement of the left shoulder and specifically raising the left arm. He did not have any pain prior to this fall. He has normal activity tolerance without shortness of breath. He denies chest pain. Denies orthopnea. He was found to have a heart rate in the 40s on examination at [facility] and was referred to the emergency room. No history of this. He does not feel lightheaded. He is on verapamil and metoprolol. Timing/Duration: 1-2 Days Severity: Moderate Associated Systoms: Denies Symptoms Allergies and Home Medications Allergies Coded Allergies: No Known Drug Allergies (Unverified , 06/18/11) Patient Home Medication List Home Medication List Reviewed: Yes Hydrochlorothiazide (Hctz) 25 Mg Tab, 25 MG PO DAILY, (Reported) Entered as Reported by: ZULY JONES on 06/18/111557 Lisinopril (Prinivil) 40 Mg Tablet, 40 MG PO, (Reported) Entered as Reported by: ZULY JONES on 06/18/11 155 Naproxen (Naproxen) 500 Mg Tablet.dr, 500 MG PO BID Prescribed by: JUANCARLOS THOMASON on 11/07/20337 Sulfamethoxazole/Trimethoprim (Bactrim Ds Tablet) 1 Each Tablet, 1 EACH PO BID Prescribed by: JUANCARLOS THOMASON on 11/07/20337 Tramadol HCl (Tramadol HCl) 50 Mg Tablet, 50 MG PO Q6H PRN for PAIN Prescribed by: JUANCARLOS THOMASON on 11/07/20337 Verapamil Hcl (Verapamil Hcl) 40 Mg Tablet, 1 EA PO DAILY, (Reported) Entered as Reported by: ZULY JONES on 06/18/111557 Review of Systems Review of Systems Constitutional: see HPI EENTM: see HPI Respiratory: no symptoms reported Cardiovascular: see HPI; No chest pain, No edema, No Hx of Intervention, No palpitations, No syncope, No vascular heart diseas Genitourinary: no symptoms reported Musculoskeletal: see HPI Skin: no symptoms reported Psychiatric/Neurological: No Symptoms Reported Hematologic/Lymphatic: No Symptoms Reported Immunological/Allergic: no symptoms reported Past Vgwozpd-Blxsbk-Zyrpbe Hx Seasonal Allergies Seasonal Allergies: Yes Past Medical History Surgeries: No Respiratory: No Cardiac: Yes High Cholesterol, Hypertension Neurological: No Genitourinary: No Gastrointestinal: Yes Gastroesophageal Reflux Musculoskeletal: No Endocrine: No HEENT: No Cancer: No Psychosocial: Yes Anxiety Integumentary: No Blood Disorders: No Physical Exam Vital Signs Vital Signs - First Documented 10/03/21 12:31 Temp 36.8 Pulse 44 Resp 12 B/P (MAP) 206/117 (146) Pulse Ox 97 Capillary Refill : Height, Weight, BMI Height: 5'10.00" Weight: 238lbs. oz. 107.586860kf; 31.00 BMI Method:Stated General Appearance: No Apparent Distress, WD/WN Eyes: Bilateral Eye Normal Inspection, Bilateral Eye PERRL, Bilateral Eye EOMI Neck: Full Range of Motion, Normal Inspection Respiratory: Chest Non Tender, Normal Breath Sounds, No Accessory Muscle Use, No Respiratory Distress Cardiovascular: Normal Peripheral Pulses, Bradycardia, Other (Bradycardia, idioventricular rhythm. Widened QRS complex, no P waves, rate of 42. However his blood pressures certainly adequate at 189/96 though he informs me he has "whitecoat syndrome".) Gastrointestinal: Normal Bowel Sounds, Non Tender, Soft Extremity: Normal Capillary Refill, Normal Inspection Neurologic/Psychiatric: Alert, Oriented x3 Skin: Normal Color, Warm/Dry Progress/Results/Core Measures Suspected Sepsis SIRS Temperature: Pulse: Respiratory Rate: Laboratory Tests 10/03/21 11:53: White Blood Count 12.1H Blood Pressure / Mean: Laboratory Tests 10/03/21 11:53: Creatinine 1.34H, INR Comment 1.0, Platelet Count 189, Total Bilirubin 2.1H Results/Orders Lab Results Laboratory Tests Test 10/03/21 11:53 Range/Units White Blood Count 12.1 H 4.3-11.0 10^3/uL Red Blood Count 5.45 4.30-5.52 10^6/uL Hemoglobin 16.4 13.3-17.7 g/dL Hematocrit 47 40-54 % Mean Corpuscular Volume 87 80-99 fL Mean Corpuscular Hemoglobin 30 25-34 pg Mean Corpuscular Hemoglobin Concent 35 32-36 g/dL Red Cell Distribution Width 13.8 10.0-14.5 % Platelet Count 189 130-400 10^3/uL Mean Platelet Volume 12.6 H 9.0-12.2 fL Immature Granulocyte % (Auto) 0 % Neutrophils (%) (Auto) 68 42-75 % Lymphocytes (%) (Auto) 21 12-44 % Monocytes (%) (Auto) 10 0-12 % Eosinophils (%) (Auto) 1 0-10 % Basophils (%) (Auto) 1 0-10 % Neutrophils # (Auto) 8.2 H 1.8-7.8 10^3/uL Lymphocytes # (Auto) 2.5 1.0-4.0 10^3/uL Monocytes # (Auto) 1.2 H 0.0-1.0 10^3/uL Eosinophils # (Auto) 0.1 0.0-0.3 10^3/uL Basophils # (Auto) 0.1 0.0-0.1 10^3/uL Immature Granulocyte # (Auto) 0.0 0.0-0.1 10^3/uL Prothrombin Time 13.3 12.2-14.7 SEC INR Comment 1.0 0.8-1.4 Activated Partial Thromboplast Time 33 24-35 SEC Sodium Level 141 135-145 MMOL/L Potassium Level 3.1 L 3.6-5.0 MMOL/L Chloride Level 99 98-107 MMOL/L Carbon Dioxide Level 27 21-32 MMOL/L Anion Gap 15 H 5-14 MMOL/L Blood Urea Nitrogen 16 7-18 MG/DL Creatinine 1.34 H 0.60-1.30 MG/DL Estimat Glomerular Filtration Rate 59 BUN/Creatinine Ratio 12 Glucose Level 123 H 70-105 MG/DL Calcium Level 9.7 8.5-10.1 MG/DL Corrected Calcium 8.5-10.1 MG/DL Magnesium Level 2.0 1.6-2.4 MG/DL Total Bilirubin 2.1 H 0.1-1.0 MG/DL Aspartate Amino Transf (AST/SGOT) 34 5-34 U/L Alanine Aminotransferase (ALT/SGPT) 48 0-55 U/L Alkaline Phosphatase 112 40-136 U/L Myoglobin 91.8 10.0-92.0 NG/ML Troponin I 0.029 H <0.028 NG/ML B-Type Natriuretic Peptide 315.0 H <100.0 PG/ML Total Protein 7.8 6.4-8.2 GM/DL Albumin 4.6 H 3.2-4.5 GM/DL My Orders Orders - COREY MCDANIEL APRN Cbc With Automated Diff (10/03/21 11:52) Magnesium (10/03/21 11:52) Chest 1 View, Ap/Pa Only (10/03/21 11:52) Ekg Tracing (10/03/21 11:52) Comprehensive Metabolic Panel (10/03/21 11:52) Myoglobin Serum (10/03/21 11:52) Protime With Inr (10/03/21 11:52) Partial Thromboplastin Time (10/03/21 11:52) O2 (10/03/21 11:52) Monitor-Rhythm Ecg Trace Only (10/03/21 11:52) Lipid Panel (10/04/21 06:00) Ed Iv/Invasive Line Start (10/03/21 11:52) Bnp [place] (10/03/21 11:52) Troponin I [place] (10/03/21 11:52) Shoulder, Left, 3 Views (10/03/21 12:10) Ekg Tracing (10/03/21 12:10) Vital Signs/I&O 10/03/21 12:31 Temp 36.8 Pulse 44 Resp 12 B/P (MAP) 206/117 (146) Pulse Ox 97 Capillary Refill : Departure Communication (Admissions) Spoke with Dr. Jefferson, will admit observation status and hold his metoprolol and calcium channel blockers. Spoke with Dr. Humphrey, agrees to admit. Impression Primary Impression: Junctional bradycardia Additional Impression: Hypokalemia Disposition: ADMITTED INPATIENT Condition: Stable Admissions Decision to Admit Reason: Admit from ER (General) Decision to Admit/Date: Oct 03, 2021 Time/Decision to Admit Time: 12:52 Departure-Patient Inst. Referrals: [facility] (PCP) Primary Care Physician AMNA CROW APRN (Family) Primary Care Physician COREY MCDANIEL APRN Oct 03, 2021 12:14
[2021-10-03 12:15] LABS: CHLORIDE 99 MMOL/L (98-107); POTASSIUM 3.1 MMOL/L (3.6-5.0); SODIUM 141 MMOL/L (135-145)
[2021-10-03 12:16] LABS: CALCIUM 9.7 MG/DL (8.5-10.1)
[2021-10-03 12:17] LABS: GLUCOSE 123 MG/DL (70-105); TOTAL PROTEIN 7.8 GM/DL (6.4-8.2)
[2021-10-03 12:18] LABS: CARBON DIOXIDE 27 MMOL/L (21-32)
[2021-10-03 12:19] LABS: BILIRUBIN,TOTAL 2.1 MG/DL (0.1-1.0)
[2021-10-03 12:20] LABS: ALKALINE PHOSPHATASE 112 U/L (40-136); PROTHROMBIN TIME PATIENT 13.3 SEC (12.2-14.7)
[2021-10-03 12:21] LABS: CREATININE SERUM 1.34 MG/DL (0.60-1.30); GFR ESTIMATED 59
[2021-10-03 12:22] LABS: BUN/CREATININE RATIO 12
[2021-10-03 12:23] LABS: ALANINE AMINOTRANSFERASE 48 U/L (0-55)
--- NOTE | 2021-10-03 13:11 | Diagnostic Imaging Report ---
INDICATION: Fall with left shoulder injury. TIME OF EXAM: 12:56 p.m. FINDINGS: Three views of the left shoulder were obtained. There is some superior migration of the humeral head with narrowing of the acromiohumeral space consistent with chronic rotator cuff arthropathy. Acromioclavicular alignment is normal. No fractures are seen. There is no dislocation. IMPRESSION: Changes of chronic rotator cuff arthropathy. No acute bony abnormality is detected. Dictated by: Dictated on workstation # [id number]
--- NOTE | 2021-10-03 13:13 | Diagnostic Imaging Report ---
EXAMINATION: Chest, one view. HISTORY: Chest pain. Hypotension. COMPARISON: 01/15/2018. FINDINGS: The lung volumes are normal. No focal consolidation is seen. No large pleural effusion or pneumothorax is seen. The cardiomediastinal silhouette is prominent. No acute osseous abnormality is seen. IMPRESSION: 1. Cardiomegaly. No overt pulmonary edema. No focal consolidations or pleural effusions. Dictated by: Dictated on workstation # [id number]
[2021-10-03 15:00] VITALS: BP 180/88
[2021-10-03] MEDS ORDERED: ALLO100T PO (15:50)
[2021-10-03] MEDS ORDERED: VERA240T90 PO (15:50)
[2021-10-03] MEDS ORDERED: CETI10TA17 PO (15:50)
[2021-10-03] MEDS ORDERED: LISI40TA9 PO (15:50)
[2021-10-03] MEDS ORDERED: MTP100TCR PO (15:50)
[2021-10-03] MEDS ORDERED: ASPI-1238 PO (15:50)
[2021-10-03] MEDS ORDERED: HYDR25TA4 PO (15:50)
[2021-10-03 16:00] VITALS: BP 172/82
--- NOTE | 2021-10-03 17:18 | Consultation-Cardiology ---
HPI-Cardiology Cardiology Consultation Date of Consultation 10/03/21 Date of Admission Time Seen by Provider: 17:15 Indication: Bradycardia HPI 65-year-old gentleman with history of hypertension, sustained a fall on his left shoulder resulted in shoulder injury. Went to [facility] for evaluation he was noted to be bradycardic. Sent to the emergency room. Patient had sinus bradycardia with a heart rate in the 30s. He denied any syncope, no chest pain, no shortness of breath. No dizziness. Home Medications & Allergies Allergies: Coded Allergies: No Known Drug Allergies (Unverified , 06/18/11) Home Medication List Reviewed: Yes [id number] Hx Patient Social History Marital Status: Employed/Student: employed Smoking Status: Former Smoker Type Used: Cigarettes 2nd Hand Smoke Exposure: No Recent Hopitalizations: No Have you traveled recently?: No Alcohol Use?: No Past Medical History Discussed below Family Medical History Family Medical Hx Noncontributory Review of Systems-General Review of Systems Constitutional: see HPI EENTM: see HPI Respiratory: no symptoms reported Cardiovascular: see HPI; No chest pain, No edema, No Hx of Intervention, No palpitations, No syncope, No vascular heart diseas Gastrointestinal: no symptoms reported, see HPI Genitourinary: no symptoms reported Musculoskeletal: see HPI Skin: no symptoms reported Psychiatric/Neurological: No Symptoms Reported Reviewed Test Results Reviewed Test Results Lab Laboratory Tests Test 10/03/21 11:53 Range/Units White Blood Count 12.1 H 4.3-11.0 10^3/uL Red Blood Count 5.45 4.30-5.52 10^6/uL Hemoglobin 16.4 13.3-17.7 g/dL Hematocrit 47 40-54 % Mean Corpuscular Volume 87 80-99 fL Mean Corpuscular Hemoglobin 30 25-34 pg Mean Corpuscular Hemoglobin Concent 35 32-36 g/dL Red Cell Distribution Width 13.8 10.0-14.5 % Platelet Count 189 130-400 10^3/uL Mean Platelet Volume 12.6 H 9.0-12.2 fL Immature Granulocyte % (Auto) 0 % Neutrophils (%) (Auto) 68 42-75 % Lymphocytes (%) (Auto) 21 12-44 % Monocytes (%) (Auto) 10 0-12 % Eosinophils (%) (Auto) 1 0-10 % Basophils (%) (Auto) 1 0-10 % Neutrophils # (Auto) 8.2 H 1.8-7.8 10^3/uL Lymphocytes # (Auto) 2.5 1.0-4.0 10^3/uL Monocytes # (Auto) 1.2 H 0.0-1.0 10^3/uL Eosinophils # (Auto) 0.1 0.0-0.3 10^3/uL Basophils # (Auto) 0.1 0.0-0.1 10^3/uL Immature Granulocyte # (Auto) 0.0 0.0-0.1 10^3/uL Prothrombin Time 13.3 12.2-14.7 SEC INR Comment 1.0 0.8-1.4 Activated Partial Thromboplast Time 33 24-35 SEC Sodium Level 141 135-145 MMOL/L Potassium Level 3.1 L 3.6-5.0 MMOL/L Chloride Level 99 98-107 MMOL/L Carbon Dioxide Level 27 21-32 MMOL/L Anion Gap 15 H 5-14 MMOL/L Blood Urea Nitrogen 16 7-18 MG/DL Creatinine 1.34 H 0.60-1.30 MG/DL Estimat Glomerular Filtration Rate 59 BUN/Creatinine Ratio 12 Glucose Level 123 H 70-105 MG/DL Calcium Level 9.7 8.5-10.1 MG/DL Corrected Calcium 8.5-10.1 MG/DL Magnesium Level 2.0 1.6-2.4 MG/DL Total Bilirubin 2.1 H 0.1-1.0 MG/DL Aspartate Amino Transf (AST/SGOT) 34 5-34 U/L Alanine Aminotransferase (ALT/SGPT) 48 0-55 U/L Alkaline Phosphatase 112 40-136 U/L Myoglobin 91.8 10.0-92.0 NG/ML Troponin I 0.029 H <0.028 NG/ML B-Type Natriuretic Peptide 315.0 H <100.0 PG/ML Total Protein 7.8 6.4-8.2 GM/DL Albumin 4.6 H 3.2-4.5 GM/DL Physical Exam Physical Exam Vital Signs Vital Signs - First Documented 10/03/21 10/03/21 12:31 14:31 Temp 36.8 Pulse 44 Resp 12 B/P (MAP) 206/117 (146) Pulse Ox 97 O2 Delivery Room Air Capillary Refill : Less Than 3 Seconds Height, Weight, BMI Height: 5'10.00" Weight: 238lbs. oz. 107.028301kc; 29.16 BMI Method:Stated General Appearance: No Apparent Distress, WD/WN Eyes: Bilateral Eye Normal Inspection, Bilateral Eye PERRL, Bilateral Eye EOMI HEENT: PERRL/EOMI, TMs Normal, Normal ENT Inspection, Pharynx Normal, Moist Mucous Membranes Neck: Full Range of Motion, Normal Inspection Respiratory: Chest Non Tender, Normal Breath Sounds, No Accessory Muscle Use, No Respiratory Distress Cardiovascular: Normal Peripheral Pulses, Bradycardia, Other (Bradycardia, idioventricular rhythm. Widened QRS complex, no P waves, rate of 42. However his blood pressures certainly adequate at 189/96 though he informs me he has "whitecoat syndrome".) Gastrointestinal: Normal Bowel Sounds, Non Tender, Soft Back: Normal Inspection, No CVA Tenderness, No Vertebral Tenderness Extremity: Normal Capillary Refill, Normal Inspection, Other (Left arm in a sling) Neurologic/Psychiatric: Alert, Oriented x3 Skin: Normal Color, Warm/Dry Lymphatic: No Adenopathy A/P-Cardiology Admission Diagnosis Sinus node dysfunction Severe bradycardia Hypertension Hyperlipidemia Assessment/Plan Sinus node dysfunction, severe bradycardia, patient has been on verapamil as an outpatient, holding verapamil and giving IV fluid, monitor tolerance and response. Probably has underlying sinus node dysfunction that exacerbated by calcium channel blockers. May require pacemaker in the future Hypertension, difficult to control. Maintained on multiple medication as an outpatient. I will restart lisinopril and hydrochlorothiazide. Use clonidine as needed and monitor tolerance and response Hyperlipidemia, maintained on Zetia, evaluate lipid profile Obesity, BMI 29. We discussed weight loss. Status post left rotator cuff injury. Currently in a sling, managed by medical team. Clinical Quality Measures AMI/AHF: ASA po Prior to arrival: BRAVO Rizo MD Oct 03, 2021 17:18
[2021-10-03] MEDS: lisINopril 40 MG (PRINIVIL) TABLET PO SCH (18:56)
[2021-10-03] MEDS: NS W/KCL 40 MEQ/L 1,000 ML IV SCH (18:56)
[2021-10-03 20:00] VITALS: BP 174/89
[2021-10-04] VITALS: BP 178/95
[2021-10-04] MEDS: NS W/KCL 40 MEQ/L 1,000 ML IV SCH ×3 (02:35→14:17)
[2021-10-04 04:00] VITALS: BP 200/98
[2021-10-04 04:53] LABS: HEMATOCRIT 42 % (40-54); HEMOGLOBIN 14.5 g/dL (13.3-17.7); MEAN CORPUSCULAR HEMOGLOBIN 30 pg (25-34); MEAN CORPUSCULAR HGB CONC 34 g/dL (32-36); MEAN CORPUSCULAR VOLUME 86 fL (80-99); PLATELET COUNT 137 10^3/uL (130-400); WHITE BLOOD COUNT 7.9 10^3/uL (4.3-11.0)
[2021-10-04 05:08] LABS: ALBUMIN 3.7 GM/DL (3.2-4.5); POTASSIUM 3.1 MMOL/L (3.6-5.0)
[2021-10-04 05:09] LABS: CALCIUM 8.8 MG/DL (8.5-10.1)
[2021-10-04 05:11] LABS: TOTAL PROTEIN 6.3 GM/DL (6.4-8.2)
[2021-10-04 05:13] LABS: BILIRUBIN,TOTAL 2.1 MG/DL (0.1-1.0)
[2021-10-04 05:14] LABS: CREATININE SERUM 1.12 MG/DL (0.60-1.30)
[2021-10-04] MEDS: lisINopril 40 MG (PRINIVIL) TABLET PO SCH (06:29)
[2021-10-04 08:00] VITALS: BP 202/118
[2021-10-04] MEDS ORDERED: KCL 20 MEQ TAB (K-DUR) PO ONE (08:00)
[2021-10-04] MEDS: amLODIPine 5 MG (NORVASC) TAB PO SCH (08:19)
[2021-10-04] MEDS: cloNIDine 0.1 MG (CATAPRES) TAB PO SCH ×2 (08:19→21:24)
--- NOTE | 2021-10-04 08:59 | History & Physical ---
HPI History of Present Illness: 65 yo M that presented to ER with symptomatic bradycardia. States that he fell on his left shoulder and was taken to [facility] walkin and was found to have HR in the 30s and was sent to ER. When he presented to the ER HR in the 40s. He denies any chest pain during any of these episodes. States that he has had multiple dizzy spells but no previous falls prior to yesterday. Remote smoking history states that he stopped in 1974. Denies any CAD,COPD, or DM. Source: patient Exam Limitations: no limitations Date seen by provider: Oct 04, 2021 Time Seen by Provider: 08:10 Attending Physician Derrick Humphrey MD [place] [place] Consult Date of Admission Oct 03, 2021 at 12:50 Home Medications Home Medications Reviewed patient Home Medication Reconciliation performed by pharmacy medication reconciliations digital field service technician and/or nursing. Patients Allergies have been reviewed. Allergies Coded Allergies: No Known Drug Allergies (Unverified , 06/18/11) [id number] Hx Patient Social History Marrital Status: Living Status: Lives at home independently Employed/Student: employed Smoking Status: Former Smoker 2nd Hand Smoke Exposure: No Recent Hopitalizations: No Alcohol Use?: No Have you traveled recently?: No Immunizations Up To Date Influenza Vaccine Up-to-Date: No; Not Current Past Medical History HTN Family Medical History Significant Family History: No Pertinent Family Hx Review of Systems ([facility]) Constitutional: no symptoms reported; No chills, No fever, No weakness EENTM: no symptoms reported; No mouth pain, No nose congestion, No throat pain Respiratory: no symptoms reported; No cough, No dyspnea on exertion, No short of breath Cardiovascular: No chest pain; syncope Gastrointestinal: no symptoms reported; No abdominal pain, No constipation, No diarrhea, No nausea, No vomiting Genitourinary: no symptoms reported; No dysuria, No frequency, No hematuria Musculoskeletal: joint pain Skin: no symptoms reported Psychiatric/Neurological: No Symptoms Reported; Denies Headache, Denies Tingling Reviewed Test Results Reviewed Test Results Lab Laboratory Tests Test 10/03/21 11:53 10/03/21 18:20 10/04/21 04:33 Range/Units White Blood Count 12.1 H 7.9 4.3-11.0 10^3/uL Red Blood Count 5.45 4.91 4.30-5.52 10^6/uL Hemoglobin 16.4 14.5 13.3-17.7 g/dL Hematocrit 47 42 40-54 % Mean Corpuscular Volume 87 86 80-99 fL Mean Corpuscular Hemoglobin 30 30 25-34 pg Mean Corpuscular Hemoglobin Concent 35 34 32-36 g/dL Red Cell Distribution Width 13.8 13.3 10.0-14.5 % Platelet Count 189 137 130-400 10^3/uL Mean Platelet Volume 12.6 H 13.0 H 9.0-12.2 fL Immature Granulocyte % (Auto) 0 % Neutrophils (%) (Auto) 68 42-75 % Lymphocytes (%) (Auto) 21 12-44 % Monocytes (%) (Auto) 10 0-12 % Eosinophils (%) (Auto) 1 0-10 % Basophils (%) (Auto) 1 0-10 % Neutrophils # (Auto) 8.2 H 1.8-7.8 10^3/uL Lymphocytes # (Auto) 2.5 1.0-4.0 10^3/uL Monocytes # (Auto) 1.2 H 0.0-1.0 10^3/uL Eosinophils # (Auto) 0.1 0.0-0.3 10^3/uL Basophils # (Auto) 0.1 0.0-0.1 10^3/uL Immature Granulocyte # (Auto) 0.0 0.0-0.1 10^3/uL Prothrombin Time 13.3 12.2-14.7 SEC INR Comment 1.0 0.8-1.4 Activated Partial Thromboplast Time 33 24-35 SEC Sodium Level 141 141 135-145 MMOL/L Potassium Level 3.1 L 3.1 L 3.6-5.0 MMOL/L Chloride Level 99 103 98-107 MMOL/L Carbon Dioxide Level 27 23 21-32 MMOL/L Anion Gap 15 H 15 H 5-14 MMOL/L Blood Urea Nitrogen 16 14 7-18 MG/DL Creatinine 1.34 H 1.12 0.60-1.30 MG/DL Estimat Glomerular Filtration Rate 59 73 BUN/Creatinine Ratio 12 13 Glucose Level 123 H 92 70-105 MG/DL Calcium Level 9.7 8.8 8.5-10.1 MG/DL Corrected Calcium 9.0 8.5-10.1 MG/DL Magnesium Level 2.0 1.6-2.4 MG/DL Total Bilirubin 2.1 H 2.1 H 0.1-1.0 MG/DL Aspartate Amino Transf (AST/SGOT) 34 22 5-34 U/L Alanine Aminotransferase (ALT/SGPT) 48 36 0-55 U/L Alkaline Phosphatase 112 103 40-136 U/L Myoglobin 91.8 10.0-92.0 NG/ML Troponin I 0.029 H < 0.028 0.040 H <0.028 NG/ML B-Type Natriuretic Peptide 315.0 H <100.0 PG/ML Total Protein 7.8 6.3 L 6.4-8.2 GM/DL Albumin 4.6 H 3.7 3.2-4.5 GM/DL Triglycerides Level 146 <150 MG/DL Cholesterol Level 146 < 200 MG/DL LDL Cholesterol Direct 90 1-129 MG/DL VLDL Cholesterol 29 5-40 MG/DL HDL Cholesterol 30 L 40-60 MG/DL Physical Exam-(CHC) Physical Exam Vital Signs VS - Last 72 Hours, by Label 10/03/21 10/03/21 10/03/21 10/03/21 12:31 14:00 14:31 14:49 Temp 36.8 Pulse 44 44 48 Resp 12 18 B/P (MAP) 206/117 (146) 184/87 Pulse Ox 97 98 100 O2 Delivery Room Air 10/03/21 10/03/21 10/03/21 10/03/21 15:00 16:00 19:00 20:00 Temp 36.7 Pulse 48 46 50 51 Resp 8 10 20 B/P (MAP) 180/88 (118) 172/82 (112) 174/89 (117) Pulse Ox 98 96 98 10/03/21 10/04/21 10/04/21 10/04/21 21:00 00:00 01:00 04:00 Pulse 51 49 51 Resp 17 B/P (MAP) 178/95 (122) 200/98 (132) Pulse Ox 98 94 96 O2 Delivery Room Air 10/04/21 07:00 Pulse 53 Capillary Refill : Less Than 3 Seconds General Appearance: WD/WN, no apparent distress HEENT: PERRL/EOMI Neck: non-tender, full range of motion, supple, normal inspection Respiratory: chest non-tender, lungs clear, normal breath sounds, no respiratory distress, no accessory muscle use Cardiovascular: normal peripheral pulses, no edema, no murmur, bradycardia Gastrointestinal: normal bowel sounds, non tender, soft, no organomegaly Back: no CVA tenderness Extremities: no pedal edema, no calf tenderness, normal capillary refill, other (Left shoulder with some pain with movement and ttp, decreased ROM due to pain) Neurologic/Psychiatric: pearl maker II-XII nml as tested, alert, normal mood/affect, oriented x 3 Skin: normal color, warm/dry Lymphatic: no adenopathy Assessment/Plan Assessment/Plan Admission Status: Observation (1) Junctional bradycardia Status: Acute Assessment & Plan: - Dr Jefferson consulted, appreciate recommendations, Stopping beta and calcium channel blockers (2) HTN (hypertension) Status: Acute Assessment & Plan: - Dr Jefferson adjusting home medications Qualifiers: Qualified Codes: I10 - Essential (primary) hypertension (3) Hypokalemia Status: Acute Assessment & Plan: - Replaced and repeat in AM Clinical Quality Measures AMI/AHF: ASA po Prior to arrival: DERRICK Whitney MD Oct 04, 2021 08:59
--- NOTE | 2021-10-04 14:01 | Cardiology Progress Note ---
Subjective Date Seen by Provider: Oct 04, 2021 Time Seen by Provider: 13:58 Subjective/Events-last exam Patient was seen and evaluated at bedside Laying down comfortably, feeling better Heart rate is slightly better. Blood pressure severely elevated Review of Systems General: No Chills, No Night Sweats; Fatigue, Malaise; No Appetite, No Other HEENT: No Head Aches, No Visual Changes, No Eye Pain, No Ear Pain, No Dysphasia, No Sinus Congestion, No Post Nasal Drip, No Sore Throat, No Other Pulmonary: No Dyspnea, No Cough, No Pleuritic Chest Pain, No Other Cardiovascular: No: Chest Pain, Palpitations, Orthopnea, Paroxysmal Noc. Dyspnea, Edema, Lt Headedness, Other Objective-Cardiology Exam Last Set of Vital Signs Vital Signs 10/03/21 10/04/21 10/04/21 10/04/21 10/04/21 20:00 00:00 04:00 09:00 12:32 Temp 36.7 Pulse 54 Resp 17 B/P (MAP) 200/98 (132) Pulse Ox 98 O2 Delivery Room Air I&O Intake and Output 10/04/21 00:00 Intake Total 400 ml Balance 400 ml Intake Oral 400 ml # Voids 2 Daily Weight Change Yes, 14-23 lbs General: Alert, Oriented X3, Cooperative HEENT: Atraumatic, PERRLA Neck: Supple, No JVD, No Thyromegaly Lungs: Clear to Auscultation, Normal Air Movement Heart: Regular Rate, Normal S1, Normal S2, Other (Systolic murmur) Abdomen: Normal Bowel Sounds, Soft, No Tenderness, No Hepatosplenomegaly, No Masses Extremities: No Clubbing, No Cyanosis, No Edema, Normal Pulses, No Tenderness/Swelling Skin: No Rashes, No Breakdown, No Significant Lesion Neuro: Normal Gait, Normal Speech, Strength at 5/5 X4 Ext, Normal Tone, Sensation Intact Psych/Mental Status: Mental Status NL, Mood NL Results Lab Laboratory Tests 10/04/21 04:33 A/P-Cardiology Admission Diagnosis Sinus node dysfunction Severe bradycardia Hypertension Hyperlipidemia Assessment/Plan Sinus node dysfunction, severe bradycardia, patient has been on verapamil as an outpatient. Verapamil was discontinued on October 03, 2021. Blood pressure is severely elevated. Heart rate is somewhat better. Continue to monitor Hypertensive urgency. Complicated by sinus node dysfunction and severe bradycardia. I gave him 1 dose of clonidine, restarted lisinopril and added hydrochlorothiazide and amlodipine I will monitor tolerance and response. Hyperlipidemia, maintained on Zetia, evaluate lipid profile Obesity, BMI 29. We discussed weight loss. Status post left rotator cuff injury. Currently in a sling, managed by medical team. BRAVO CLARK MD Oct 04, 2021 14:01
[2021-10-04 16:00] VITALS: BP 185/102
[2021-10-04 16:30] VITALS: BP 176/94
[2021-10-04] MEDS ORDERED: cloNIDine 0.1 MG (CATAPRES) TAB PO ONE (17:00)
[2021-10-04 19:00] VITALS: BP 185/92
[2021-10-04] MEDS: hydrALAZINE (APRESOLINE) 25 MG TAB PO SCH (21:24)
[2021-10-04] MEDS: doxAzosin 4 MG (CARDURA) TAB PO SCH (21:24)
[2021-10-04] MEDS: NEO/POLY/BAC (NEOSPORIN) OINT 15 GM TUBE TOP SCH (21:25)
[2021-10-05] VITALS (8 sets, daily range): BP systolic 145–186; BP diastolic 77–91
[2021-10-05] MEDS: hydrALAZINE (APRESOLINE) 25 MG TAB PO SCH ×3 (06:07→21:03)
[2021-10-05 06:37] LABS: BASOPHILS % (AUTO) 0 % (0-10); EOSINOPHILS # (AUTO) 0.1 10^3/uL (0.0-0.3); EOSINOPHILS % (AUTO) 2 % (0-10); HEMATOCRIT 40 % (40-54); HEMOGLOBIN 14.1 g/dL (13.3-17.7); LYMPHOCYTES % (AUTO) 30 % (12-44); MEAN CORPUSCULAR HEMOGLOBIN 30 pg (25-34); MEAN CORPUSCULAR HGB CONC 35 g/dL (32-36); MEAN CORPUSCULAR VOLUME 86 fL (80-99); MEAN PLATELET VOLUME 12.5 fL (9.0-12.2); MONOCYTES # (AUTO) 0.6 10^3/uL (0.0-1.0); MONOCYTES % (AUTO) 9 % (0-12); NEUTROPHILS % (AUTO) 59 % (42-75); PLATELET COUNT 130 10^3/uL (130-400); WHITE BLOOD COUNT 6.8 10^3/uL (4.3-11.0)
[2021-10-05 06:55] LABS: ALBUMIN 3.7 GM/DL (3.2-4.5); POTASSIUM 3.4 MMOL/L (3.6-5.0)
[2021-10-05 06:57] LABS: CALCIUM 8.9 MG/DL (8.5-10.1)
[2021-10-05 06:58] LABS: TOTAL PROTEIN 6.2 GM/DL (6.4-8.2)
[2021-10-05 07:00] LABS: BILIRUBIN,TOTAL 1.4 MG/DL (0.1-1.0)
[2021-10-05 07:01] LABS: CREATININE SERUM 1.07 MG/DL (0.60-1.30)
[2021-10-05 07:05] LABS: MAGNESIUM 1.8 MG/DL (1.6-2.4)
[2021-10-05] MEDS: lisINopril 40 MG (PRINIVIL) TABLET PO SCH (08:26)
[2021-10-05] MEDS: amLODIPine 5 MG (NORVASC) TAB PO SCH (08:26)
[2021-10-05] MEDS: cloNIDine 0.1 MG (CATAPRES) TAB PO SCH ×2 (08:27→21:00)
[2021-10-05] MEDS: NEO/POLY/BAC (NEOSPORIN) OINT 15 GM TUBE TOP SCH ×2 (08:32→21:06)
--- NOTE | 2021-10-05 09:43 | Progress Note - Hospitalist ---
Subjective HPI/CC On Admission Date Seen by Provider: Oct 05, 2021 Time Seen by Provider: 09:45 Subjective/Events-last exam Patient doing better Multiple blood pressure medications required and systolic is 170 Heart rate still 60 Stopped verapamil and still waiting to dissipate from system Updated Dr. Jefferson May still need a pacemaker Replace potassium Told him he needs a sleep study since I suspected sleep apnea Family at the bedside All questions answered Review of Systems General: Fatigue Objective Exam Vital Signs Vital Signs Date Time Temp Pulse Resp B/P (MAP) Pulse Ox O2 Delivery O2 Flow Rate FiO2 10/05/21 08:01 95 Room Air 10/05/21 07:58 36.1 50 16 175/88 (117) Capillary Refill : Less Than 3 Seconds General Appearance: No Apparent Distress, WD/WN, Chronically ill, Obese Respiratory: Lungs Clear, Normal Breath Sounds Cardiovascular: Bradycardia Neurologic/Psychiatric: Alert, Oriented x3, No Motor/Sensory Deficits, Normal Mood/Affect Results/Procedures Lab Laboratory Tests 10/05/21 06:26 Patient resulted labs reviewed. Assessment/Plan Assessment and Plan Assess & Plan/Chief Complaint Assessment: Symptomatic bradycardia Malignant hypertension Obesity BMI 29 Suspected ANAM Hypokalemia Plan: Appreciate cardiology Antihypertensives Replace potassium Clinical Quality Measures AMI/AHF: ASA po Prior to arrival: THAI Velazco DO Oct 05, 2021 09:42
[2021-10-05] MEDS ORDERED: KCL 20 MEQ TAB (K-DUR) PO ONE (11:45)
--- NOTE | 2021-10-05 12:05 | Cardiology Progress Note ---
Subjective Date Seen by Provider: Oct 05, 2021 Time Seen by Provider: 12:03 Subjective/Events-last exam Patient was seen at bedside, denied any chest pain. Still having few episodes of bradycardia Review of Systems General: No Chills, No Night Sweats; Fatigue; No Malaise, No Appetite, No Other HEENT: No Head Aches, No Visual Changes, No Eye Pain, No Ear Pain, No Dys phasia, No Sinus Congestion, No Post Nasal Drip, No Sore Throat, No Other Pulmonary: No Dyspnea, No Cough, No Pleuritic Chest Pain, No Other Cardiovascular: No: Chest Pain, Palpitations, Orthopnea, Paroxysmal Noc. Dyspnea, Edema, Lt Headedness, Other Objective-Cardiology Exam Last Set of Vital Signs Vital Signs 10/05/21 10/05/21 07:58 08:01 Temp 36.1 Pulse 50 Resp 16 B/P (MAP) 175/88 (117) Pulse Ox 95 O2 Delivery Room Air I&O Intake and Output 10/04/21 23:59 Intake Total 1580 ml Balance 1580 ml Intake Oral 1580 ml # Voids 9 # Bowel Movements 2 General: Alert, Oriented X3, Cooperative HEENT: Atraumatic, PERRLA Neck: Supple, No JVD, No Thyromegaly Lungs: Clear to Auscultation, Normal Air Movement Heart: Regular Rate, Normal S1, Normal S2, Other (Systolic murmur) Abdomen: Normal Bowel Sounds, Soft, No Tenderness, No Hepatosplenomegaly, No Masses Extremities: No Clubbing, No Cyanosis, No Edema, Normal Pulses, No Tenderness/Swelling Skin: No Rashes, No Breakdown, No Significant Lesion Neuro: Normal Gait, Normal Speech, Strength at 5/5 X4 Ext, Normal Tone, Sensation Intact Psych/Mental Status: Mental Status NL, Mood NL Results Lab Laboratory Tests 10/05/21 06:26 A/P-Cardiology Admission Diagnosis Sinus node dysfunction Severe bradycardia Hypertension Hyperlipidemia Assessment/Plan Sinus node dysfunction, severe bradycardia, patient has been on verapamil as an outpatient. Verapamil was discontinued on October 03, 2021. Blood pressure is severely elevated. Heart rate is somewhat better. I added Cardura, hydralazine and continued on clonidine and lisinopril. I added amlodipine and patient is tolerating it well. Probably having underlying sleep apnea, need sleep study as an outpatient Continue to monitor heart rate Hypertensive urgency. Complicated by sinus node dysfunction and severe bradycardia. Currently on lisinopril, clonidine, hydralazine and Cardura in addition to amlodipine and tolerating these medication well. Continue to monitor Hyperlipidemia, maintained on Zetia, evaluate lipid profile Obesity, BMI 29. We discussed weight loss. Status post left rotator cuff injury. Currently in a sling, managed by medical team. BRAVO CLARK MD Oct 05, 2021 12:05
[2021-10-05] MEDS ORDERED: MAGNESIUM 1 GM/100 ML IVPB 100 ML IV ONE (12:15)
[2021-10-05] MEDS: KCL 20 MEQ TAB (K-DUR) PO SCH (18:48)
[2021-10-05] MEDS ORDERED: LACTULOSE SYRUP 10GM/15ML (ENULOSE) 30ML UDC PO PRN (20:45)
[2021-10-05] MEDS ORDERED: HYDROcodone/APAP 5 MG/325 MG (LORTAB) TAB PO PRN (20:45)
[2021-10-05] MEDS ORDERED: MELATONIN 3 MG TABLET PO PRN (20:45)
[2021-10-05] MEDS ORDERED: ONDANSETRON 4 MG/2 ML (SDV) Z0FRAN IVP PRN (20:45)
[2021-10-05] MEDS ORDERED: CALCIUM CARBONATE 500 MG (TUMS) TAB.CHEW PO PRN (20:45)
[2021-10-05] MEDS ORDERED: BISACODYL 10 MG SUPP (DULCOLAX) PR PRN (20:45)
[2021-10-05] MEDS ORDERED: DOCUSATE SODIUM 100 MG (COLACE) CAP PO PRN (20:45)
[2021-10-05] MEDS ORDERED: ACETAMINOPHEN 325 MG TABLET PO PRN (20:45)
[2021-10-05] MEDS ORDERED: diphenhydrAMINE 25 MG TAB (BENADRYL) PO PRN (20:45)
[2021-10-05] MEDS ORDERED: ALPRAZolam 0.25 MG (XANAX) TAB PO PRN (20:45)
[2021-10-05] MEDS ORDERED: ENOXAPARIN 120 MG/0.8 ML (LOVENOX) ONE (20:59)
[2021-10-05] MEDS ORDERED: ENOXAPARIN 40 MG/0.4 ML (LOVENOX) SYR SC SCH (21:00)
[2021-10-05] MEDS: doxAzosin 4 MG (CARDURA) TAB PO SCH (21:00)
[2021-10-05] MEDS: SENNA W/DOCUSATE (SENOKOT S) TABLET PO SCH (21:17)
[2021-10-06 04:16] VITALS: BP 162/85
[2021-10-06 05:25] LABS: BASOPHILS % (AUTO) 1 % (0-10); MEAN CORPUSCULAR HEMOGLOBIN 30 pg (25-34)
[2021-10-06 05:27] LABS: EOSINOPHILS # (AUTO) 0.1 10^3/uL (0.0-0.3); EOSINOPHILS % (AUTO) 2 % (0-10); HEMATOCRIT 39 % (40-54); HEMOGLOBIN 13.8 g/dL (13.3-17.7); LYMPHOCYTES # (AUTO) 1.9 10^3/uL (1.0-4.0); LYMPHOCYTES % (AUTO) 30 % (12-44); MEAN CORPUSCULAR HGB CONC 36 g/dL (32-36); MEAN CORPUSCULAR VOLUME 86 fL (80-99); MEAN PLATELET VOLUME 12.7 fL (9.0-12.2); MONOCYTES # (AUTO) 0.6 10^3/uL (0.0-1.0); MONOCYTES % (AUTO) 10 % (0-12); NEUTROPHILS # (AUTO) 3.6 10^3/uL (1.8-7.8); NEUTROPHILS % (AUTO) 58 % (42-75); PLATELET COUNT 114 10^3/uL (130-400); WHITE BLOOD COUNT 6.3 10^3/uL (4.3-11.0)
[2021-10-06 05:36] LABS: ALBUMIN 3.5 GM/DL (3.2-4.5); POTASSIUM 3.6 MMOL/L (3.6-5.0)
[2021-10-06 05:38] LABS: CALCIUM 8.6 MG/DL (8.5-10.1)
[2021-10-06] MEDS: hydrALAZINE (APRESOLINE) 25 MG TAB PO SCH (05:39)
[2021-10-06 05:40] LABS: BILIRUBIN,TOTAL 1.3 MG/DL (0.1-1.0)
[2021-10-06 05:43] LABS: CREATININE SERUM 1.09 MG/DL (0.60-1.30)
[2021-10-06 07:47] VITALS: BP 177/84
[2021-10-06] MEDS: lisINopril 40 MG (PRINIVIL) TABLET PO SCH (08:17)
[2021-10-06] MEDS: KCL 20 MEQ TAB (K-DUR) PO SCH (08:18)
[2021-10-06] MEDS: SENNA W/DOCUSATE (SENOKOT S) TABLET PO SCH (08:18)
[2021-10-06] MEDS: NEO/POLY/BAC (NEOSPORIN) OINT 15 GM TUBE TOP SCH (08:20)
--- NOTE | 2021-10-06 08:59 | Cardiology Progress Note ---
Subjective Date Seen by Provider: October 06, 2021 Time Seen by Provider: 08:58 Subjective/Events-last exam Patient was seen at bedside, laying down comfortably, feeling better. No new complaint. Review of Systems General: No Chills, No Night Sweats, No Fatigue, No Malaise, No Appetite, No Other HEENT: No Head Aches, No Visual Changes, No Eye Pain, No Ear Pain, No Dysph zacarias, No Sinus Congestion, No Post Nasal Drip, No Sore Throat, No Other Pulmonary: No Dyspnea, No Cough, No Pleuritic Chest Pain, No Other Cardiovascular: No: Chest Pain, Palpitations, Orthopnea, Paroxysmal Noc. Dyspnea, Edema, Lt Headedness, Other Objective-Cardiology Exam Last Set of Vital Signs Vital Signs 10/06/21 07:47 Temp 37.0 Pulse 60 Resp 20 B/P (MAP) 177/84 (115) Pulse Ox 97 O2 Delivery Room Air I&O Intake and Output 10/06/21 00:00 Intake Total 1600 ml Balance 1600 ml Intake Oral 1500 ml IV Total 100 ml # Voids 6 General: Alert, Oriented X3, Cooperative HEENT: Atraumatic, PERRLA Neck: Supple, No JVD, No Thyromegaly Lungs: Clear to Auscultation, Normal Air Movement Heart: Regular Rate, Normal S1, Normal S2, Other (Systolic murmur) Abdomen: Normal Bowel Sounds, Soft, No Tenderness, No Hepatosplenomegaly, No Masses Extremities: No Clubbing, No Cyanosis, No Edema, Normal Pulses, No Tenderness/Swelling Skin: No Rashes, No Breakdown, No Significant Lesion Neuro: Normal Gait, Normal Speech, Strength at 5/5 X4 Ext, Normal Tone, Sensation Intact Psych/Mental Status: Mental Status NL, Mood NL Results Lab Laboratory Tests 10/06/21 05:19 A/P-Cardiology Admission Diagnosis Sinus node dysfunction Severe bradycardia Hypertension Hyperlipidemia Assessment/Plan Sinus node dysfunction, severe bradycardia, patient has been on verapamil as an outpatient. Verapamil and metoprolol was discontinued on October 03, 2021. Blood pressure is better controlled at this time. Okay for discharge and follow-up as an outpatient Hypertensive urgency. Complicated by sinus node dysfunction and severe bradycardia. Currently on lisinopril, clonidine, hydralazine and Cardura in addition to amlodipine. I increased clonidine to 0.2 mg twice daily and amlodipine to 10 mg daily and will continue on hydralazine and Cardura Hyperlipidemia, maintained on Zetia, evaluate lipid profile Obesity, BMI 29. We discussed weight loss. Status post left rotator cuff injury. Currently in a sling, managed by medical team. BRAVO CLARK MD October 06, 2021 08:59
[2021-10-06] MEDS ORDERED: amLODIPine 10 MG (NORVASC) TAB PO SCH (09:00)
[2021-10-06] MEDS ORDERED: ASPIRIN E.C. 81 MG (ECOTRIN) TAB PO SCH (09:00)
[2021-10-06] MEDS ORDERED: LORATADINE (CLARITIN) 10 MG TAB PO SCH (09:00)
[2021-10-06] MEDS ORDERED: CETIRIZINE HCL (ZYRTEC) 10 MG TAB PO SCH (09:00)
[2021-10-06] MEDS ORDERED: ALLOPURINOL 100 MG (ZYLOPRIM) TAB PO SCH (09:00)
[2021-10-06] MEDS ORDERED: cloNIDine 0.2 MG (CATAPRES) TAB PO SCH (09:00)
[2021-10-06 10:00] VITALS: BP 151/71
[2021-10-06 10:14] VITALS: BP 151/84
[2021-10-06 11:26] VITALS: BP 158/79
[2021-10-06] MEDS ORDERED: CLN.2T PO (12:58)
[2021-10-06] MEDS ORDERED: AMLO-251 PO (12:58)
[2021-10-06] MEDS ORDERED: HYDR-3923 PO (12:58)
[2021-10-06] MEDS ORDERED: DOXA4TAB2 PO (12:58)
--- NOTE | 2021-10-06 13:01 | Discharge Summary ---
Discharge Summary Hospital Course Was the Problem List Reviewed?: Yes Problems/Dx: (1) Junctional bradycardia Status: Acute (2) HTN (hypertension) Status: Acute Qualifiers: Qualified Codes: I10 - Essential (primary) hypertension (3) Hypokalemia Status: Acute Hospital Course Date of Admission: Oct 03, 2021 at 12:50 Admission Diagnosis : Family Physician/Provider: Valentina Gonzalez Probation Supervisor Date of Discharge: 10/06/21 Discharge Diagnosis: Symptomatic bradycardia, malignant hypertension Hospital Course: Patient had a lengthy hospital course after he was admitted for symptomatic bradycardia and malignant hypertension. Verapamil and metoprolol were both discontinued. Multiple antihypertensives added by cardiology. No evidence of need of pacemaker but could require that in the future. Patient was deemed stable for discharge. Labs and Pending Lab Test: Laboratory Tests 10/06/21 05:19: White Blood Count 6.3, Red Blood Count 4.55, Hemoglobin 13.8, Hematocrit 39L, Mean Corpuscular Volume 86, Mean Corpuscular Hemoglobin 30, Mean Corpuscular Hemoglobin Concent 36, Red Cell Distribution Width 13.2, Platelet Count 114L, Mean Platelet Volume 12.7H, Immature Granulocyte % (Auto) 0, Neutrophils (%) (Auto) 58, Lymphocytes (%) (Auto) 30, Monocytes (%) (Auto) 10, Eosinophils (%) (Auto) 2, Basophils (%) (Auto) 1, Neutrophils # (Auto) 3.6, Lymphocytes # (Auto) 1.9, Monocytes # (Auto) 0.6, Eosinophils # (Auto) 0.1, Basophils # (Auto) 0.0, Immature Granulocyte # (Auto) 0.0, Percent Immature Platelet Fraction 11.2H, Sodium Level 140, Potassium Level 3.6, Chloride Level 105, Carbon Dioxide Level 22, Anion Gap 13, Blood Urea Nitrogen 15, Creatinine 1.09, Estimat Glomerular Filtration Rate 75, BUN/Creatinine Ratio 14, Glucose Level 97, Calcium Level 8.6, Corrected Calcium 9.0, Total Bilirubin 1.3H, Aspartate Amino Transf (AST/SGOT) 21, Alanine Aminotransferase (ALT/SGPT) 26, Alkaline Phosphatase 94, Total Protein 6.0L, Albumin 3.5 Home Meds Active Amlodipine Besylate 10 Mg Tablet 10 Mg PO DAILY Doxazosin Mesylate 4 Mg Tablet 8 Mg PO HS Hydralazine HCl 25 Mg Tablet 25 Mg PO TID Clonidine HCl 0.2 Mg Tablet 0.2 Mg PO BID Reported Aspirin EC (Aspirin) 81 Mg Tablet.dr 81 Mg PO DAILY Metoprolol Succinate 100 Mg Tab.er.24h 100 Mg PO DAILY Allopurinol 100 Mg Tablet 100 Mg PO DAILY Verapamil ER (Verapamil HCl) 240 Mg Tablet.er 240 Mg PO BID Lisinopril 40 Mg Tablet 40 Mg PO DAILY Cetirizine HCl 10 Mg Tablet 10 Mg PO DAILY Hydrochlorothiazide 25 Mg Tablet 25 Mg PO DAILY Assessment/Pt Instructions PCP in 1 week Discharge Planning: <30 minutes discharge planning Discharge Instructions Discharge Diet: No Restrictions Discharge Physical Examination Vital Signs Vital Signs Date Time Temp Pulse Resp B/P (MAP) Pulse Ox O2 Delivery O2 Flow Rate FiO2 10/06/21 12:46 64 10/06/21 11:26 36.2 20 158/79 (105) 99 Room Air General Appearance: No Apparent Distress, WD/WN, Chronically ill Allergies: Coded Allergies: No Known Drug Allergies (Unverified , 06/18/11) Discharge Summary Date of Admission Oct 03, 2021 at 12:50 Date of Discharge Discharge Date: October 06, 2021 Discharge Diagnosis Assessment: Symptomatic bradycardia Malignant hypertension Obesity BMI 29 Suspected ANAM Hypokalemia Plan: Appreciate cardiology Antihypertensives Replace potassium Clinical Quality Measures AMI/AHF: ASA po Prior to arrival: THAI Velazco DO October 06, 2021 13:01
== END 2021-10-06 14:00 | disposition home or self-care (01) ==
LOC: EDUNIT# 11:42 → ER 11:44 → CSD 12:50 → 4TH 10-05 22:08
PROVIDERS: ADMIT Family Medicine; ATTEND Internal Medicine
DX: I49.5 Sick sinus syndrome (principal); E87.6 Hypokalemia; I16.0 Hypertensive urgency; I10 Essential (primary) hypertension; E78.5 Hyperlipidemia, unspecified; S49.92XD Unspecified injury of left shoulder and upper arm, subsequent encounter; Z87.891 Personal history of nicotine dependence; E66.9 Obesity, unspecified; Z68.29 Body mass index [BMI] 29.0-29.9, adult; Z79.2 Long term (current) use of antibiotics; Z79.1 Long term (current) use of non-steroidal anti-inflammatories (NSAID); W19.XXXD Unspecified fall, subsequent encounter
CPT/HCPCS: 36415; 71045; 73030; 80053; 80061; 83735; 83874; 83880; 84484; 85025; 85027; 85610; 85730; 93005; 93041; 93306; 96360; 96361; 96365; G0378

== ENCOUNTER 2021-12-12 14:13 | Emergency (ER) | payer OTHER ==
[~2021-12-12] VITALS: Ht 177.8 cm; Wt 92.7 kg
[~2021-12-12 14:13] MED LIST changes: +ALLO100T PO; +AMLO-251 PO; +ASPI-1238 PO; +ATOR20TA66 PO; +CETI10TA17 PO; +CLN.2T PO; +DOXA4TAB2 PO; +FLUO40CA PO; +HYDR-3923 PO; +HYDR25TA4 PO; +LISI40TA9 PO; +MTP100TCR PO; +VERA240T90 PO
--- NOTE | 2021-12-12 14:58 | ED Hip Pain/Injury ---
General Chief Complaint: Hip/Pelvic Problems Stated Complaint: HIP PAIN Nursing Triage Note: PT AMB TO RM 6 WITH COMPLAINT OF LEFT HIP PAIN. STATES PAIN STARTED IN OCTOBER WHEN HE FELL AND LANDED ON ON PHONE IN POCKET. PT RECENTLY HAD TRIPLE BYPASS. (DAMON BASSETT) History of Present Illness Date Seen by Provider: Dec 12, 2021 Time Seen by Provider: 14:30 Initial Comments 66-year-old male presents ambulatory with a walker for left posterior hip pain. He reports in October of this year he became hypotensive causing him to fall and land on his left hip with his cell phone in his pocket. He has been seen by his primary care provider as well as several healthcare providers while he was hospitalized after having CABG, but no exam of his left hip or x-ray have been obtained. He was released from the hospital yesterday. He is taking hydrocodone for chest wall pain after this cardiac surgery. He is using the walker because of the cardiac rehab. He denies any previous history of injuries to his right hip. Timing/Duration: intermittent Severity: mild Location: hip (L) Method of Injury: fell Associated Symptoms: denies symptoms (DAMON BASSETT) Allergies and Home Medications Allergies Coded Allergies: No Known Drug Allergies (Unverified , 12/02/21) Patient Home Medication List Home Medication List Reviewed: Yes (DAMON BASSETT) Allopurinol (Allopurinol) 100 Mg Tablet, 100 MG PO DAILY, (Reported) Entered as Reported by: AMARJIT HITCHCOCK on 10/03/21 1550 Aspirin (Aspirin EC) 81 Mg Tablet.dr, 81 MG PO DAILY, (Reported) Entered as Reported by: AMARJIT HITCHCOCK on 12/02/21 1608 Atorvastatin Calcium (Atorvastatin Calcium) 20 Mg Tablet, 20 MG PO DAILY, (Reported) Entered as Reported by: AMARJIT HITCHCOCK on 12/02/21 1608 Cetirizine HCl (Cetirizine HCl) 10 Mg Tablet, 10 MG PO DAILY, (Reported) Entered as Reported by: AMARJIT HITCHCOCK on 10/03/21 1550 Clonidine HCl (Clonidine HCl) 0.2 Mg Tablet, 0.2 MG PO DAILY, (Reported) Entered as Reported by: AMARJIT HITCHCOCK on 12/02/21 1608 Doxazosin Mesylate (Doxazosin Mesylate) 4 Mg Tablet, 4 MG PO DAILY, (Reported) Entered as Reported by: AMARJIT HITCHCOCK on 12/02/21 1608 Fluoxetine HCl (Fluoxetine HCl) 40 Mg Capsule, 40 MG PO DAILY, (Reported) Entered as Reported by: AMARJIT HITCHCOCK on 12/02/21 1608 Hydralazine HCl (Hydralazine HCl) 25 Mg Tablet, 25 MG PO BID, (Reported) Entered as Reported by: AMARJIT HITCHCOCK on 12/02/21 1608 Hydrochlorothiazide (Hydrochlorothiazide) 25 Mg Tablet, 25 MG PO DAILY, (Reported) Entered as Reported by: AMARJIT HITCHCOCK on 10/03/21 1550 Lisinopril (Lisinopril) 40 Mg Tablet, 40 MG PO DAILY, (Reported) Entered as Reported by: AMARJIT HITCHCOCK on 10/03/21 1550 Review of Systems Constitutional: no symptoms reported, see HPI Musculoskeletal: see HPI, joint pain (Left posterior hip) (DAMON BASSETT) All Other Systems Reviewed Negative Unless Noted: Yes (DAMON BASSETT) Past Rncsznh-Hylrwo-Hkindn Hx Patient Social History Tobacco Use?: No Use of E-Cig and/or Vaping dev: No Substance use?: No Alcohol Use?: No Pt feels they are or have been: No (DAMON BASSETT) Seasonal Allergies Seasonal Allergies: Yes (DAMON BASSETT) Past Medical History Surgery/Hospitalization HX: HTN Surgeries: No Respiratory: No Cardiac: Yes High Cholesterol, Hypertension Neurological: No Genitourinary: No Gastrointestinal: Yes Gastroesophageal Reflux Musculoskeletal: No Endocrine: No HEENT: No Cancer: No Psychosocial: Yes Anxiety Integumentary: No Blood Disorders: No (DAMON BASSETT) Family Medical History Reviewed Nursing Family Hx (DAMON BASSETT) No Pertinent Family Hx (DAMON BASSETT) Physical Exam Vital Signs Vital Signs - First Documented 12/12/21 12/12/21 14:30 15:28 Temp 36.8 Pulse 76 Resp 16 B/P (MAP) 170/101 (124) Pulse Ox 98 O2 Delivery Room Air (KANU MELARA MD) Vital Signs Capillary Refill : Less Than 3 Seconds (DAMON BASSETT) Height, Weight, BMI Height: 5'10.00" Weight: 238lbs. oz. 107.068478mh; 29.00 BMI Method:Stated General Appearance: No Apparent Distress, WD/WN Cardiovascular: Regular Rate, Rhythm, No Murmur, Normal Peripheral Pulses Respiratory: Chest Non Tender, Lungs Clear, Normal Breath Sounds Extremity: Normal Capillary Refill, Normal Inspection, Normal Range of Motion, Other (Trace LOM Left hip with Int and Ext rotation) Neurologic/Psychiatric: Alert, Oriented x3, No Motor/Sensory Deficits, Normal Mood/Affect Skin: Normal Color, Warm/Dry (DAMON BASSETT) Progress/Results/Core Measures Results/Orders Vital Signs/I&O 12/12/21 12/12/21 14:30 15:28 Temp 36.8 Pulse 76 67 Resp 16 14 B/P (MAP) 170/101 (124) 152/83 Pulse Ox 98 95 O2 Delivery Room Air Room Air (KANU MELARA MD) Blood Pressure Mean: 124 Diagnostic Imaging Diagonstic Imaging: Xray Plain Films/CT/US/NM/MRI: hip Comments NAME: CARITO [facility] REC#: [id number] PT STATUS: REG ER : 1955 PHYSICIAN: DAMON BASSETT ADMIT DATE: 12/12/21/ER Draft Date of Exam:12/12/21 PELVIS WITH LEFT HIP 2-3 VIEWS INDICATION: Left hip pain. Fall. COMPARISON: None. FINDINGS: AP view of the pelvis and 2 dedicated radiographic views of the left hip were obtained. There is no fracture, dislocation, bone destruction, or radiopaque foreign body. The visualized pelvic osseous structures and the SI joints demonstrate no acute fracture or dislocation. There is no bone destruction or radiopaque foreign body. The surrounding soft tissue structures are unremarkable. IMPRESSION: 1. No acute fracture or dislocation in the pelvis or left hip. Dictated on workstation # [id number] Dict: 12/12/21 1510 Trans: 12/12/21 1512 [facility] [id number] Interpreted by: BAUDILIO LOWERY MD Electronically signed by: Reviewed: Reviewed by Me (DAMON BASSETT) Departure Impression Primary Impression: Left hip pain Disposition: 01 HOME, SELF-CARE Condition: Improved Departure-Patient Inst. Decision time for Depature: 15:10 (DAMON BASSETT) Referrals: [facility] (PCP) Primary Care Physician AMNA CROW APRN (Family) Primary Care Physician Patient Instructions: Hip Bursitis (DC) Add. Discharge Instructions: Alternate heat and ice to your left hip for 20 minutes at a time. Follow-up with your primary care provider or consider requesting referral to orthopedics if symptoms or not improving or worsen. Continue to use your home pain medication as prescribed by your heart surgeon. Return to the emergency department for new, urgent healthcare needs. All discharge instructions reviewed with patient and/or family. Voiced understanding. ATTENDING PHYSICIAN NOTE: I was physically present as attending physician in the emergency department during the care of this patient, but I was not directly involved in the decision making or delivery of care for this patient. (KANU MELARA MD) DAMON BASSETT Dec 12, 2021 14:58 KANU MELARA MD Dec 12, 2021 17:30
--- NOTE | 2021-12-12 15:12 | Diagnostic Imaging Report ---
INDICATION: Left hip pain. Fall. COMPARISON: None. FINDINGS: AP view of the pelvis and 2 dedicated radiographic views of the left hip were obtained. There is no fracture, dislocation, bone destruction, or radiopaque foreign body. The visualized pelvic osseous structures and the SI joints demonstrate no acute fracture or dislocation. There is no bone destruction or radiopaque foreign body. The surrounding soft tissue structures are unremarkable. IMPRESSION: 1. No acute fracture or dislocation in the pelvis or left hip. Dictated by: Dictated on workstation # [id number]
[2021-12-12 15:28] VITALS: BP 152/83
== END 2021-12-12 15:26 | disposition home or self-care (01) ==
LOC: EDUNIT# 14:13 → ER 14:14
DX: M25.552 Pain in left hip (principal); R07.89 Other chest pain; Z79.891 Long term (current) use of opiate analgesic; Z95.1 Presence of aortocoronary bypass graft; W19.XXXA Unspecified fall, initial encounter

== ENCOUNTER 2021-12-19 14:48 | Emergency (ER) | payer OTHER ==
[2021-12-19 16:44] LABS: MEAN PLATELET VOLUME 13.6 fL (9.0-12.2)
[2021-12-19 16:46] LABS: BASOPHILS % (AUTO) 0 % (0-10); EOSINOPHILS # (AUTO) 0.1 10^3/uL (0.0-0.3); EOSINOPHILS % (AUTO) 1 % (0-10); HEMATOCRIT 30 % (40-54); HEMOGLOBIN 9.7 g/dL (13.3-17.7); LYMPHOCYTES # (AUTO) 1.1 10^3/uL (1.0-4.0); LYMPHOCYTES % (AUTO) 16 % (12-44); MEAN CORPUSCULAR HEMOGLOBIN 29 pg (25-34); MEAN CORPUSCULAR HGB CONC 32 g/dL (32-36); MEAN CORPUSCULAR VOLUME 91 fL (80-99); MONOCYTES # (AUTO) 0.7 10^3/uL (0.0-1.0); MONOCYTES % (AUTO) 9 % (0-12); NEUTROPHILS # (AUTO) 5.2 10^3/uL (1.8-7.8); NEUTROPHILS % (AUTO) 73 % (42-75); PLATELET COUNT 289 10^3/uL (130-400); WHITE BLOOD COUNT 7.1 10^3/uL (4.3-11.0)
[2021-12-19 16:49] LABS: ALBUMIN 3.6 GM/DL (3.2-4.5); POTASSIUM 3.7 MMOL/L (3.6-5.0)
[2021-12-19 16:52] LABS: TOTAL PROTEIN 6.3 GM/DL (6.4-8.2)
[2021-12-19 16:54] LABS: BILIRUBIN,TOTAL 1.1 MG/DL (0.1-1.0)
[2021-12-19 16:56] LABS: CREATININE SERUM 1.25 MG/DL (0.60-1.30)
[2021-12-19 16:58] LABS: BILIRUBIN,URINE NEGATIVE (NEGATIVE); CLARITY,URINE CLEAR; COLOR,URINE ORANGE; GLUCOSE, URINE (UA) NEGATIVE (NEGATIVE); KETONES,URINE NEGATIVE (NEGATIVE); LEUKOCYTE ESTERASE ,URINE NEGATIVE (NEGATIVE); NITRITE,URINE NEGATIVE (NEGATIVE); PROTEIN,URINE 1+ (NEGATIVE)
--- NOTE | 2021-12-19 17:09 | ED Cardiac General ---
History of Present Illness General Chief Complaint: Cardiac/General Problems Stated Complaint: HTN,DIZZINESS Nursing Triage Note: PT AMB TO RM 10 WITH C/O ELEVATED BP ACCORDING TO HOME HEALTH NURSE. PT SEES HH FOR QUAD BYPASS 2 WEEKS AGO AT [place] Source: patient Exam Limitations: no limitations History of Present Illness Date Seen by Provider: Dec 19, 2021 Time Seen by Provider: 16:00 Initial Comments Patient states he reports to the ER by private conveyance with his significant other with a chief complaint of every time he lays down at night exclusively he starts having a choking coughing spell and feels short of breath and has to sit back up for it to clear. He does not feel like his edema in his legs is any worse than usual. This is been going on for 2 weeks. 2 weeks ago he had a quadruple bypass by Dr. Sampson in [place], [place]. His vp ad products and planning is Dr. Jefferson and primary care is Valentina Burns through [facility]. He has not reported this to them yet. He does not feel short of breath at this time nor is he having any chest pain nausea vomiting diarrhea chills dizziness etc. patient told the nurse that he he was here because home health told him he had high blood pressure. His blood pressures have been running in the 130s systolic. Patient states he ran out of his Lasix couple days ago and has not had a refill. Echocardiogram from Dr. Li Canales September 2021 demonstrated mild concentric hypertrophy with an EF of 50 to 55%. Allergies and Home Medications Allergies Coded Allergies: No Known Drug Allergies (Unverified , 12/02/21) Patient Home Medication List Home Medication List Reviewed: Yes Allopurinol (Allopurinol) 100 Mg Tablet, 100 MG PO DAILY, (Reported) Entered as Reported by: AMARJIT HITCHCOCK on 10/03/21 1550 Aspirin (Aspirin EC) 81 Mg Tablet.dr 81 MG PO DAILY, (Reported) Entered as Reported by: AMARJIT HITCHCOCK on 12/02/21 1608 Atorvastatin Calcium (Atorvastatin Calcium) 20 Mg Tablet, 20 MG PO DAILY, (Reported) Entered as Reported by: AMARJIT HITCHCOCK on 12/02/21 1608 Cetirizine HCl (Cetirizine HCl) 10 Mg Tablet, 10 MG PO DAILY, (Reported) Entered as Reported by: AMARJIT HITCHCOCK on 10/03/21 1550 Clonidine HCl (Clonidine HCl) 0.2 Mg Tablet, 0.2 MG PO DAILY, (Reported) Entered as Reported by: AMARJIT HITCHCOCK on 12/02/21 160 Doxazosin Mesylate (Doxazosin Mesylate) 4 Mg Tablet, 4 MG PO DAILY, (Reported) Entered as Reported by: AMARJIT HITCHCOCK on 12/02/21 160 Fluoxetine HCl (Fluoxetine HCl) 40 Mg Capsule, 40 MG PO DAILY, (Reported) Entered as Reported by: AMARJIT HITCHCOCK on 12/02/21 160 Furosemide (Lasix) 20 Mg Tablet, 20 MG PO DAILY Prescribed by: CINDY BRADY on 12/19/211825 Hydralazine HCl (Hydralazine HCl) 25 Mg Tablet, 25 MG PO BID, (Reported) Entered as Reported by: AMARJIT HITCHCOCK on 12/02/21 160 Hydrochlorothiazide (Hydrochlorothiazide) 25 Mg Tablet, 25 MG PO DAILY, (Reported) Entered as Reported by: AMARJIT HITCHCOCK on 10/03/21 155 Lisinopril (Lisinopril) 40 Mg Tablet, 40 MG PO DAILY, (Reported) Entered as Reported by: AMARJIT HITCHCOCK on 10/03/21 155 Potassium Chloride (Potassium Chloride) 20 Meq Tab.er.prt, 20 MEQ PO DAILY Prescribed by: CINDY BRADY on 12/19/211825 Review of Systems Review of Systems Constitutional: No chills, No diaphoresis, No fever, No malaise, No weakness EENTM: No Blurred Vision, No Double Vision Respiratory: Denies Cough; Orthopnea, Shortness of Air (When laying down at night) Cardiovascular: Denies Chest Pain, Denies Edema, Denies Irregular Heart Rate Gastrointestinal: Denies Abdominal Pain, Denies Constipated, Denies Diarrhea, Denies Nausea Genitourinary: Denies Burning, Denies Discharge Musculoskeletal: No back pain, No joint pain All Other Systems Reviewed Negative Unless Noted: Yes Past Qjssffh-Lzvjrb-Qhtusb Hx Patient Social History Tobacco Use?: No Use of E-Cig and/or Vaping dev: No Substance use?: No Alcohol Use?: No Pt feels they are or have been: No Immunizations Up To Date Influenza Vaccine Up-to-Date: No; Not Current Seasonal Allergies Seasonal Allergies: Yes Past Medical History Surgery/Hospitalization HX: HTN Surgeries: No Respiratory: No Cardiac: Yes High Cholesterol, Hypertension Neurological: No Genitourinary: No Gastrointestinal: Yes Gastroesophageal Reflux Musculoskeletal: No Endocrine: No HEENT: No Cancer: No Psychosocial: Yes Anxiety Integumentary: No Blood Disorders: No Family Medical History No Pertinent Family Hx Physical Exam Vital Signs Vital Signs - First Documented 12/19/21 14:54 Temp 37.0 Pulse 88 Resp 20 B/P (MAP) 172/93 (119) Capillary Refill : Height, Weight, BMI Height: 5'10.00" Weight: 238lbs. oz. 107.602613sm; 29.00 BMI Method:Stated General Appearance: No Apparent Distress, WD/WN HEENT: PERRL/EOMI, TMs Normal, Normal ENT Inspection, Pharynx Normal, Moist Mucous Membranes Neck: Full Range of Motion, Normal Inspection Respiratory: Lungs Clear, Normal Breath Sounds, No Accessory Muscle Use, No Respiratory Distress Cardiovascular: Regular Rate, Rhythm, No Edema, Normal Peripheral Pulses Gastrointestinal: Normal Bowel Sounds, Non Tender, Soft Genital/Rectal: Normal Genital Exam Extremity: Normal Capillary Refill, Normal Inspection, Normal Range of Motion, Pedal Edema (1+ bipedal edema without erythema or induration.) Neurologic/Psychiatric: Alert, Oriented x3, No Motor/Sensory Deficits Skin: Normal Color, Warm/Dry Progress/Results/Core Measures Results/Orders Lab Results Laboratory Tests Test 12/19/21 15:07 12/19/21 16:29 Range/Units White Blood Count 7.1 4.3-11.0 10^3/uL Red Blood Count 3.31 L 4.30-5.52 10^6/uL Hemoglobin 9.7 L 13.3-17.7 g/dL Hematocrit 30 L 40-54 % Mean Corpuscular Volume 91 80-99 fL Mean Corpuscular Hemoglobin 29 25-34 pg Mean Corpuscular Hemoglobin Concent 32 32-36 g/dL Red Cell Distribution Width 14.3 10.0-14.5 % Platelet Count 289 130-400 10^3/uL Mean Platelet Volume 13.6 H 9.0-12.2 fL Immature Granulocyte % (Auto) 0 % Neutrophils (%) (Auto) 73 42-75 % Lymphocytes (%) (Auto) 16 12-44 % Monocytes (%) (Auto) 9 0-12 % Eosinophils (%) (Auto) 1 0-10 % Basophils (%) (Auto) 0 0-10 % Neutrophils # (Auto) 5.2 1.8-7.8 10^3/uL Lymphocytes # (Auto) 1.1 1.0-4.0 10^3/uL Monocytes # (Auto) 0.7 0.0-1.0 10^3/uL Eosinophils # (Auto) 0.1 0.0-0.3 10^3/uL Basophils # (Auto) 0.0 0.0-0.1 10^3/uL Immature Granulocyte # (Auto) 0.0 0.0-0.1 10^3/uL Percent Immature Platelet Fraction 13.4 H 0.0-7.6 % Sodium Level 140 135-145 MMOL/L Potassium Level 3.7 3.6-5.0 MMOL/L Chloride Level 105 98-107 MMOL/L Carbon Dioxide Level 21 21-32 MMOL/L Anion Gap 14 5-14 MMOL/L Blood Urea Nitrogen 19 H 7-18 MG/DL Creatinine 1.25 0.60-1.30 MG/DL Estimat Glomerular Filtration Rate 64 BUN/Creatinine Ratio 15 Glucose Level 115 H 70-105 MG/DL Calcium Level 9.0 8.5-10.1 MG/DL Corrected Calcium 9.3 8.5-10.1 MG/DL Total Bilirubin 1.1 H 0.1-1.0 MG/DL Aspartate Amino Transf (AST/SGOT) 35 H 5-34 U/L Alanine Aminotransferase (ALT/SGPT) 36 0-55 U/L Alkaline Phosphatase 148 H 40-136 U/L C-Reactive Protein High Sensitivity 3.92 H 0.00-0.50 MG/DL B-Type Natriuretic Peptide 2821.0 H <100.0 PG/ML Total Protein 6.3 L 6.4-8.2 GM/DL Albumin 3.6 3.2-4.5 GM/DL Urine Color ORANGE Urine Clarity CLEAR Urine pH 6.0 5-9 Urine Specific [place] 1.025 H 1.016-1.022 Urine Protein 1+ H NEGATIVE Urine Glucose (UA) NEGATIVE NEGATIVE Urine Ketones NEGATIVE NEGATIVE Urine Nitrite NEGATIVE NEGATIVE Urine Bilirubin NEGATIVE NEGATIVE Urine Urobilinogen 0.2 < = 1.0 MG/DL Urine Leukocyte Esterase NEGATIVE NEGATIVE Urine RBC (Auto) NEGATIVE NEGATIVE Urine RBC 0-2 /HPF Urine WBC 0-2 /HPF Urine Squamous Epithelial Cells 0-2 /HPF Urine Renal Epithelial Cells NONE /HPF Urine Crystals NONE /LPF Urine Bacteria NEGATIVE /HPF Urine Casts NONE /LPF Urine Mucus MODERATE H /LPF Urine Culture Indicated NO My Orders Orders - CINDY BRADY Ekg Tracing (12/19/21 15:03) Ua Culture If Indicated (12/19/21 16:37) Chest 1 View, Ap/Pa Only (12/19/21 16:37) Orthostatic Vital Signs (Adult (12/19/21 16:37) Continuous Ekg Monitoring (12/19/21 16:37) Cbc With Automated Diff (12/19/21 16:37) Comprehensive Metabolic Panel (12/19/21 16:37) Hs C Reactive Protein (12/19/21 16:37) Ekg Tracing (12/19/21 16:39) Bnp Storey (12/19/21 17:01) Chest 1 View, Ap/Pa Only (12/19/21 17:01) Chest 1 View, Ap/Pa Only (12/19/21 ) Furosemide Injection (Lasix Injection) (12/19/21 18:30) Potassium Chloride (Tablet) (K Dur Table (12/19/21 18:30) Vital Signs/I&O 12/19/21 14:54 Temp 37.0 Pulse 88 Resp 20 B/P (MAP) 172/93 (119) Blood Pressure Mean: 119 Progress Progress Note #1: Time: 17:13 Progress Note Patient is edema seems at baseline. His symptoms sound like orthopnea. We will check a BNP and chest x-ray. Rest of his labs unremarkable. We did a repeat EKG because he did have some marginal little elevations of about a half block ST elevation in his anterior lateral leads which is probably due to his recent CABG. chest x-ray is not significantly changed. Suspect that his symptoms of orthopnea are related to his heart he may need little more diuretics. We will see what the BNP shows Progress Note #2: Time: 18:23 Progress Note The patient's orthopnea is probably indicative of the fact that he is out of his Lasix. We will going to give him 20 mg IV, 20 mill equivalents of potassium and put him out on 20 mg p.o. Lasix plus potassium for the next 2 weeks and follow- up with his vp ad products and planning. Initial ECG Impression Date: Dec 19, 2021 Initial ECG Impression Time: 15:12 Initial ECG Rate: 85 Initial ECG Rhythm: Normal Sinus Initial ECG Intervals: Normal Initial ECG Impression: Normal Initial ECG Comparisson: Unchanged Comment There is some significant movement artifact in the anterior lateral leads that limits our assessment. There does not appear to be any new clinically relevant ST changes compared to previous EKGs. EKG : EKG Time: 16:54 Rate: 78 Rhythm: Normal Sinus Intervals: Normal ECG Comparisson: Unchanged ECG Impression: Normal, Nonspecific Changes Comment Normal sinus rhythm with PVC and no clinically relevant changes compared to previous EKG from 12/02/2021 which predates the CABG. Diagnostic Imaging Diagonstic Imaging: Xray Plain Films/CT/US/NM/MRI: chest Comments Cardiomegaly with sternotomy wires noted. Mild pleural effusions. Mild increase in congestion. NAME: CAR[facility] REC#: [id number] PT STATUS: REG ER : 1955 PHYSICIAN: CINDY BRADY MD ADMIT DATE: 12/19/21/ER Signed Date of Exam:12/19/21 CHEST 1 VIEW, AP/PA ONLY INDICATION: Chest pain Portable chest 5:21 PM There is cardiomegaly. There is mild vascular congestion. There is some volume loss at both lung bases. There is a small right pleural effusion. IMPRESSION: Cardiomegaly with pulmonary venous congestion and small right pleural effusion. Dictated by: Dictated on workstation # [id number] Dict: 12/19/211736 Trans: 12/19/211741 [facility] [id number] Interpreted by: MARIELLE FERREIRA MD Electronically signed by: MARIELLE FERREIRA MD 12/19/211741 Reviewed: Reviewed by Me Departure Impression Primary Impression: Acute exacerbation of CHF (congestive heart failure) Qualified Codes: I50.9 - Heart failure, unspecified Disposition: 01 HOME, SELF-CARE Condition: Stable Departure-Patient Inst. Decision time for Depature: 18:24 Referrals: [facility] Primary Care Physician VALENTINA CROW APRN (Family) Primary Care Physician BRAVO JEFFERSON MD Patient Instructions: Heart Failure, Adult, How to Weigh Yourself Add. Discharge Instructions: Start taking Lasix/furosemide 20 mg daily in the morning. Potassium supplement 20 cory-equivalents daily with food as Lasix will cause decreased potassium over time. Within the next 2 weeks follow-up with your vp ad products and planning for reassessment. Return to the ER for significantly worsening shortness of breath, chest pain or other worrisome symptoms. All discharge instructions reviewed with patient and/or family. Voiced understanding. Scripts Potassium Chloride (Potassium Chloride) 20 Meq Tab.er.prt 20 MEQ PO DAILY for 14 Days, #1 TAB 0 Refills Prov: CINDY BRADY 12/19/21 Furosemide (Lasix) 20 Mg Tablet 20 MG PO DAILY for 14 Days, #14 TAB 0 Refills Prov: CINDY BRADY 12/19/21 Copy Copies To 1: BRAVO JEFFERSON MD, TITUS J Dec 19, 2021 17:09
[2021-12-19 17:10] LABS: BACTERIA,URINE NEGATIVE /HPF; RBC,URINE 0-2 /HPF; SQUAMOUS EPITHELIAL CELL,UR 0-2 /HPF; WBC,URINE 0-2 /HPF
--- NOTE | 2021-12-19 17:40 | Diagnostic Imaging Report ---
INDICATION: Chest pain Portable chest 5:21 PM There is cardiomegaly. There is mild vascular congestion. There is some volume loss at both lung bases. There is a small right pleural effusion. IMPRESSION: Cardiomegaly with pulmonary venous congestion and small right pleural effusion. Dictated by: Dictated on workstation # [id number]
[2021-12-19] MEDS ORDERED: POTA-179 PO (18:26)
[2021-12-19] MEDS ORDERED: FURO-125 PO (18:26)
[2021-12-19] MEDS ORDERED: KCL 20 MEQ TAB (K-DUR) PO ONE (18:30)
[2021-12-19] MEDS ORDERED: FUROSEMIDE 40 MG/4 ML INJ (LASIX) IVP ONE (18:30)
[2021-12-19 18:56] VITALS: BP 176/98
== END 2021-12-19 18:57 | disposition home or self-care (01) ==
LOC: EDUNIT# 14:48 → ER 14:49
DX: I11.0 Hypertensive heart disease with heart failure (principal); I50.9 Heart failure, unspecified; T50.1X6A Underdosing of loop [high-ceiling] diuretics, initial encounter; R94.31 Abnormal electrocardiogram [ECG] [EKG]; Z91.14 Patient's other noncompliance with medication regimen; Z79.899 Other long term (current) drug therapy; Z95.1 Presence of aortocoronary bypass graft; Z28.310 Unvaccinated for COVID-19
CPT/HCPCS: 36415; 71045; 80053; 81000; 83880; 85025; 86141; 93005

== ENCOUNTER → 2022-01-07 | Outpatient (CLI) | payer OTHER ==
[~2022-01-07] MED LIST changes: +FURO-125 PO; +POTA-179 PO
--- NOTE | 2022-01-07 15:35 | Diagnostic Imaging Report ---
EXAMINATION: Chest 2 view HISTORY: Postoperative evaluation COMPARISON: 12/19/2021 FINDINGS: Stable mild enlargement cardiac silhouette. Surgical changes from median sternotomy. There is a small left pleural effusion with left basilar airspace opacities. No pneumothorax. Degenerative changes of the thoracic spine. Osseous structures are otherwise intact. IMPRESSION: 1. Small left pleural effusion with adjacent atelectasis or consolidation. No pneumothorax. Dictated by: Dictated on workstation # [id number]
== END ==
LOC: CARD 14:30
PROVIDERS: ATTEND Nurse Practitioner
DX: J90 Pleural effusion, not elsewhere classified (principal); J98.11 Atelectasis; I25.10 Atherosclerotic heart disease of native coronary artery without angina pectoris
CPT/HCPCS: 71046; 93005

== ENCOUNTER → 2022-04-01 | Outpatient (CLI) | payer OTHER | LOC: CARD 08:39 | PROVIDERS: ATTEND Physician Assistant | DX: I11.9 Hypertensive heart disease without heart failure (principal); I35.1 Nonrheumatic aortic (valve) insufficiency; I25.10 Atherosclerotic heart disease of native coronary artery without angina pectoris | CPT/HCPCS: 93306 ==

== ENCOUNTER 2023-05-12 12:19 | Inpatient (IN) | payer MEDICARE ==
[~2023-05-12] VITALS: Ht 172 cm; Wt 73.6 kg
[~2023-05-12 12:19] MED LIST changes: -ASPI-999 PO; -ATOR40TA70 PO; -ATOR80TA76 PO; -CLOP75TA28 PO; -EMPA10TA PO; -FURO40TA4 PO; -ISOS30TA82 PO; -METO-333 PO; -POTA-330 PO; -RT-ALBUINH INH; -SPIR25TA5 PO
[2023-05-12] MEDS ORDERED: ENOXAPARIN 80 MG/0.8 ML SYRINGE SC ONE (12:45)
--- NOTE | 2023-05-12 12:52 | Diagnostic Imaging Report ---
INDICATION: Chest pain Frontal chest obtained at 1227 p.m. and compared to 01/07/2022. There is prominent cardiomegaly with poststernotomy change and central vascular congestion. There is some bibasilar infiltrate with a small left pleural effusion. There is no pneumothorax IMPRESSION: Prominent cardiomegaly with poststernotomy change. Central vascular congestion with some bibasilar infiltrate and a small left pleural effusion. Dictated by: Dictated on workstation # [id number]
--- NOTE | 2023-05-12 12:54 | Consultation-Cardiology ---
HPI-Cardiology Cardiology Consultation Date of Consultation 05/12/23 Date of Admission Time Seen by Provider: 12:50 Indication: Chest pain, shortness of breath HPI 67-year-old gentleman with extensive history with history of CABG in December 25, called by ambulance yesterday for increasing shortness of breath and lightheadedness. He contacted my office and I saw him earlier today and was planning to do Stress test and send in for troponin and BNP evaluation which was significantly elevated. He is currently not having chest pain but had an accelerating angina, reporting chest pain after walking short distance. Increasing dyspnea on exertion. I referred him to the emergency room and decision was made to admit him for non-ST elevation myocardial infarction Home Medications & Allergies Allergies: Coded Allergies: No Known Drug Allergies (Unverified , 12/02/21) Home Medication List Reviewed: Yes VWR-Wegbhr-Wlkbkp Hx Patient Social History Marital Status: Employed/Student: retired Type Used: Cigarettes 2nd Hand Smoke Exposure: No Recent Hopitalizations: No Alcohol Use?: No Past Medical History Discussed below Family Medical History Significant Family History: No Pertinent Family Hx Review of Systems-General Review of Systems Constitutional: no symptoms reported, see HPI EENTM: see HPI, no symptoms reported Respiratory: see HPI; No cough; dyspnea on exertion; No hemoptysis, No orthopnea, No phlegm; short of breath; No stridor, No wheezing, No other Cardiovascular: see HPI, chest pain; No edema, No Hx of Intervention, No palpitations, No syncope, No vascular heart diseas, No other Gastrointestinal: no symptoms reported, see HPI Genitourinary: no symptoms reported, see HPI Musculoskeletal: no symptoms reported, see HPI Skin: no symptoms reported, see HPI Psychiatric/Neurological: No Symptoms Reported, See HPI Physical Exam Physical Exam Vital Signs Vital Signs - First Documented 05/12/23 12:24 Temp 35.7 Pulse 48 Resp 18 B/P (MAP) 134/76 (95) Pulse Ox 97 O2 Delivery Room Air Capillary Refill : Less Than 3 Seconds Height, Weight, BMI Height: 5'10.00" Weight: 238lbs. oz. 107.318561jo; 27.00 BMI Method:Stated General Appearance: No Apparent Distress, WD/WN Eyes: Bilateral Eye Normal Inspection, Bilateral Eye PERRL, Bilateral Eye EOMI HEENT: PERRL/EOMI, TMs Normal, Normal ENT Inspection, Pharynx Normal, Moist Mucous Membranes Neck: Full Range of Motion, Normal Inspection, Non Tender, Supple, Carotid Bruit Respiratory: Chest Non Tender, Normal Breath Sounds, No Accessory Muscle Use, No Respiratory Distress Cardiovascular: Regular Rate, Rhythm, No Edema, No Gallop, No JVD, Normal Peripheral Pulses, Systolic Murmur, Gallop/S3 Gastrointestinal: Normal Bowel Sounds, No Organomegaly, No Pulsatile Mass, Non Tender, Soft Back: Normal Inspection, No CVA Tenderness, No Vertebral Tenderness Extremity: Normal Capillary Refill, Normal Inspection, Normal Range of Motion, Non Tender, No Calf Tenderness, No Pedal Edema Neurologic/Psychiatric: Alert, Oriented x3, No Motor/Sensory Deficits, Normal Mood/Affect Skin: Normal Color, Warm/Dry Lymphatic: No Adenopathy A/P-Cardiology Admission Diagnosis Non-ST elevation myocardial infarction Coronary artery disease Congestive heart failure, acute left ventricular systolic dysfunction, ischemic cardiomyopathy Hypertension Assessment/Plan Chest pain, resembling accelerating angina. Non-ST elevation myocardial infarction, had elevation in troponin, accelerating angina. Plan to proceed with cardiac catheterization possible PTCA Coronary artery disease- NSTEMI in November 2021, underwent C December 03, 2021 showing sever multivessel CAD with total occlusion of the mid LAD reconstructed by collateral. Total occlusion of RCA, reconstructed by collateral. Severe stenosis at patricia prox LAD and moderate to severe stenosis of the prox first obtuse marginal branch with mild ot moderate disease in the left main. Was referred to [facility] and underwent bypass x [address] Sampson on 12/09/21. planning for cardiac catheterization 2D echo was done on April 01, 2022 with normal LV size, ejection fraction 40 to 45% left atrial dilatation 4.87 cm, aortic valve sclerosis with mild aortic regurgitation, PA pressure 15 to 20 mmHg Congestive heart failure, chronic compensated left ventricular systolic dysfunction, ejection fraction 40 to 45%, ischemic cardiomyopathy. possible PTCA Elevated BNP, congestive heart failure probably acute left ventricular systolic dysfunction, ischemic cardiomyopathy, will give Lasix 40 mg today and restart 20 mg daily Evaluate 2D echo Maintained on lisinopril 40 mg daily. Unable to tolerate beta-blockers secondary to severe bradycardia Syncope, resulted in injury to his shoulder, no further syncopal episodes. Had episode of severe bradycardia. Patient reports has been having increased episodes of dizziness/lightheadedness, mainly when up moving around. Likely having orthostatic hypotension, probably Sinus node dysfunction with severe bradycardia, hospitalized on October 06, 2021. Heart rate is better and his symptoms are better. If patient becomes symptomatic again, consider event monitor. Hypertension, resistant to multiple medication. Maintained on amlodipine 10 mg daily, clonidine 0.2 milligrams once a day, doxazosin 4 mg daily, hydralazine 25 mg 3 times a day, hydrochlorothiazide 25 mg daily, lisinopril 40 mg daily. Intolerant to beta-blockers due to 2 episodes of severe bradycardia. I will increase hydralazine to 50mg TID. Hyperlipidemia, maintained on Lipitor 40 mg daily, Zetia 10 mg daily LDL is over 160, planning to add Repatha BMI 27, we discussed weight loss. BRAVO CLARK MD May 12, 2023 12:54
--- NOTE | 2023-05-12 12:57 | ED Chest Pain ---
General Chief Complaint: Dizziness/Syncope Stated Complaint: PASSING OUT | Nursing Triage Note: PT STATES HAVING NEAR SYNCOPAL EPISODES OVER THE LAST WEEK. WAS SENT HERE AFTER AMBER HAD BLOOD WORK DONE TODAY AND SHOWED AN ELEVATED TROPONIN Source: patient Exam Limitations: no limitations History of Present Illness Date Seen by Provider: May 12, 2023 Time Seen by Provider: 12:26 Initial Comments Here with report of recent chest pain with any activity and states he has pain actually starts in his legs that is associated with weakness and then rises up his body to his chest. When he rests it goes away. Does have significant cardiac history including previous blockages that required triple bypass surgery last year. Not currently on blood thinners. He does take aspirin daily and did take that today. He was seen at Dr. Jefferson's office where he had labs drawn and an EKG done. No STEMI noted on EKG per office notes but labs did find elevated troponin of 1.3 on outside labs done today. Dr. Jefferson was concerned about the patient and wanted him evaluated and admitted. Patient came here for that per instructions. Patient states that he does get dizzy and weak with the events and that it is becoming more frequent. He is short of breath with this. Denies sweating. Timing/Duration: 1 week, changing over time, intermittent, gone now Severity/Quality: moderate, aching Location: central Radiation: other (As above) Prior CP/Workup: cardiac cath, echocardiography, heart attack ASA po BUDGET TECHNICIAN: Yes NTG SL BUDGET TECHNICIAN: No Associated Symptoms: abdominal pain; No back pain; diaphoresis, dizziness; No nausea/vomiting; shortness of breath, weakness Allergies and Home Medications Allergies Coded Allergies: No Known Drug Allergies (Unverified , 12/02/21) Patient Home Medication List Home Medication List Reviewed: Yes Allopurinol (Allopurinol) 100 Mg Tablet, 100 MG PO DAILY, (Reported) Entered as Reported by: AMARJIT HITCHCOCK on 10/03/21 1550 Aspirin (Aspirin EC) 81 Mg Tablet.dr 81 MG PO DAILY, (Reported) Entered as Reported by: AMARJIT HITCHCOCK on 12/02/21 1608 Atorvastatin Calcium (Atorvastatin Calcium) 20 Mg Tablet, 20 MG PO DAILY, (Reported) Entered as Reported by: AMARJIT HITCHCOCK on 12/02/21 1608 Cetirizine HCl (Cetirizine HCl) 10 Mg Tablet, 10 MG PO DAILY, (Reported) Entered as Reported by: AMARJIT HITCHCOCK on 10/03/21 155 Clonidine HCl (Clonidine HCl) 0.2 Mg Tablet, 0.2 MG PO DAILY, (Reported) Entered as Reported by: AMARJIT HITCHCOCK on 12/02/21 160 Doxazosin Mesylate (Doxazosin Mesylate) 4 Mg Tablet, 4 MG PO DAILY, (Reported) Entered as Reported by: AMARJIT HITCHCOCK on 12/02/21 160 Fluoxetine HCl (Fluoxetine HCl) 40 Mg Capsule, 40 MG PO DAILY, (Reported) Entered as Reported by: AMARJIT HITCHCOCK on 12/02/211607 Furosemide (Lasix) 20 Mg Tablet, 20 MG PO DAILY Prescribed by: CINDY BRADY on 12/19/211825 Hydralazine HCl (Hydralazine HCl) 25 Mg Tablet, 25 MG PO BID, (Reported) Entered as Reported by: AMARJIT HITCHCOCK on 12/02/21 160 Hydrochlorothiazide (Hydrochlorothiazide) 25 Mg Tablet, 25 MG PO DAILY, (Reported) Entered as Reported by: AMARJIT HITCHCOCK on 10/03/211549 Lisinopril (Lisinopril) 40 Mg Tablet, 40 MG PO DAILY, (Reported) Entered as Reported by: AMARJIT HITCHCOCK on 10/03/211549 Potassium Chloride (Potassium Chloride) 20 Meq Tab.er.prt, 20 MEQ PO DAILY Prescribed by: CINDY BRADY on 12/19/211825 Review of Systems Review of Systems Constitutional: see HPI; No chills, No fever EENTM: No Nose Congestion, No Throat Pain Respiratory: See HPI Cardiovascular: See HPI; Denies Edema Gastrointestinal: Abdominal Pain; Denies Vomiting Genitourinary: No Symptoms Reported Musculoskeletal: see HPI, muscle weakness Skin: no symptoms reported Psychiatric/Neurological: See HPI Past Jdwbeba-Fselsx-Dgzhlg Hx Patient Social History Tobacco Use?: No Substance use?: No Alcohol Use?: No Immunizations Up To Date First/Initial COVID19 Vaccinat: NO Seasonal Allergies Seasonal Allergies: Yes Past Medical History Surgery/Hospitalization HX: HTN Surgeries: No Respiratory: No Cardiac: Yes High Cholesterol, Hypertension Neurological: No Genitourinary: No Gastrointestinal: Yes Gastroesophageal Reflux Musculoskeletal: No Endocrine: No HEENT: No Cancer: No Psychosocial: Yes Anxiety Integumentary: No Blood Disorders: No Family Medical History No Pertinent Family Hx Physical Exam Vital Signs Vital Signs - First Documented 05/12/23 12:24 Temp 35.7 Pulse 48 Resp 18 B/P (MAP) 134/76 (95) Pulse Ox 97 O2 Delivery Room Air Capillary Refill : Less Than 3 Seconds Height, Weight, BMI Height: 5'10.00" Weight: 238lbs. oz. 107.789040bj; 27.00 BMI Method:Stated General Appearance: No Apparent Distress, WD/WN HEENT: PERRL/EOMI, Pharynx Normal Neck: Non Tender, Supple Respiratory: Lungs Clear, Normal Breath Sounds Cardiovascular: Regular Rate, Rhythm, No Murmur Gastrointestinal: Non Tender, Soft Extremity: Normal Range of Motion, Non Tender Neurologic/Psychiatric: Alert, Oriented x3 Skin: Normal Color, Warm/Dry Progress/Results/Core Measures Results/Orders My Orders Orders - MARIELLE CONNELLY MD Ekg Tracing (05/12/23 12:26) Chest 1 View, Ap/Pa Only (05/12/23 12:30) O2 (05/12/23 12:30) Monitor-Rhythm Ecg Trace Only (05/12/23 12:30) Lipid Panel (05/13/23 06:00) Ed Iv/Invasive Line Start (05/12/23 12:30) Enoxaparin Injection (Enoxaparin Injecti (05/12/23 12:45) Code/Resuscitation (05/12/23 12:36) Ed Admission (Communication) (05/12/23 12:36) Medications Given in ED Current Medications Medications Dose Ordered Sig/Mallory Route Start Time Stop Time Status Last Admin Dose Admin Enoxaparin Sodium 80 mg ONCE ONCE SC 05/12/23 12:45 05/12/23 12:46 DC 05/12/23 12:39 80 MG Vital Signs/I&O 05/12/23 12:24 Temp 35.7 Pulse 48 Resp 18 B/P (MAP) 134/76 (95) Pulse Ox 97 O2 Delivery Room Air Blood Pressure Mean: 95 Progress Progress Note : Progress Note Seen and evaluated. I did review labs from lab draw this morning which included CBC, CMP, troponin and BNP. Notably troponin was elevated at 1.36 and BNP was elevated at 2112. Chemistries grossly normal except for slightly elevated serum creatinine of 1.62. Total bilirubin was 2.6. Coags do show slight elevation in PT at 15.5 with normal INR at 1.2. CBC shows normal white count and slightly low but near normal hemoglobin. We will get chest x-ray and EKG here. I will make contact with Dr. Jefferson. Differential diagnosis includes unstable angina, non-STEMI, heart failure 1230: I did speak with Dr. Jefferson patient's retention specialist and he is requesting admission. He is recommending Lovenox now and then n.p.o. after midnight. 1234: I did speak with Dr. Sethi, [facility] inpatient on-call physician. She accepts patient for admission and will write orders. I did discuss all of this with the patient and family who agreed to admission. Chest x-ray is complete and I have reviewed that and does show markedly enlarged cardiac silhouette with vascular congestion on my interpretation. Report reviewed and noted below. EKG as noted below. Lovenox 80 mg subcu ordered and given. Admit, inpatient status to cardiac stepdown. Initial ECG Impression Date: May 12, 2023 Initial ECG Impression Time: 12:34 Initial ECG Rate: 47 Initial ECG Rhythm: S.Black Comment Sinus bradycardia with left bundle branch block. Leftward axis. No evidence of ST elevation UT. Interpreted by me. Diagnostic Imaging Diagonstic Imaging: Xray Plain Films/CT/US/NM/MRI: chest Comments [facility]. [place], [place] NAME: CARITO [facility] REC#: [id number] PT STATUS: REG ER : 1955 PHYSICIAN: MARIELLE CONNELLY MD ADMIT DATE: 05/12/23/ER Draft Date of Exam:05/12/23 CHEST 1 VIEW, AP/PA ONLY INDICATION: Chest pain Frontal chest obtained at 1227 p.m. and compared to 01/07/2022. There is prominent cardiomegaly with poststernotomy change and central vascular congestion. There is some bibasilar infiltrate with a small left pleural effusion. There is no pneumothorax IMPRESSION: Prominent cardiomegaly with poststernotomy change. Central vascular congestion with some bibasilar infiltrate and a small left pleural effusion. Dictated on workstation # [id number] Dict: 05/12/23 1249 Trans: 05/12/[address] [facility] [id number] Interpreted by: ALMA ROSA ROBBINS MD Electronically signed by: Departure Communication (Admissions) Time/Spoke to Admitting Phy: 12:34 Time/Spoke to Consulting Phy: 12:30 Impression Primary Impression: Unstable angina Additional Impression: NSTEMI (non-ST elevated myocardial infarction) Disposition: ADMITTED INPATIENT Condition: Stable Admissions Decision to Admit Reason: Admit from ER (General) Decision to Admit/Date: May 12, 2023 Time/Decision to Admit Time: 12:34 Departure-Patient Inst. Referrals: [facility] [place] (PCP/Family) Primary Care Physician MARIELLE CONNELLY MD May 12, 2023 12:57
[2023-05-12] MEDS ORDERED: FUROSEMIDE INJECTION 40 MG/4 ML VIAL IVP ONE (13:00)
[2023-05-12] MEDS ORDERED: ASPIRIN enteric coated 81MG TABLET PO ONE ×2 (13:00→15:00)
[2023-05-12] MEDS ORDERED: ONDANSETRON INJECTION 4 MG/2 ML (SDV) IVP PRN (14:15)
[2023-05-12] MEDS ORDERED: NITROGLYCERIN 0.4 MG SL TABLETS BTL 25'S SL PRN (14:15)
[2023-05-12] MEDS ORDERED: morphine INJ 4 MG/ML 1 ML (VIAL/SYRINGE) IV PRN (14:15)
[2023-05-12] MEDS ORDERED: PATIENT MAY USE OWN MEDS, ALL PO SCH (14:15)
[2023-05-12] MEDS ORDERED: FUROSEMIDE INJECTION 40 MG/4 ML VIAL IVP NR (15:15)
[2023-05-12 15:50] VITALS: BP 148/89
[2023-05-12] MEDS ORDERED: FURO40TA4 PO (15:58)
[2023-05-12] MEDS ORDERED: METO-333 PO (15:58)
[2023-05-12] MEDS ORDERED: POTA-330 PO (15:58)
[2023-05-12] MEDS ORDERED: RT-ALBUINH INH (15:58)
[2023-05-12] MEDS ORDERED: ATOR40TA70 PO (15:58)
[2023-05-12] MEDS ORDERED: ASPI-999 PO (15:58)
--- NOTE | 2023-05-12 16:48 | History & Physical ---
HPI History of Present Illness: 67 yo male presented to ER after he had a follow up with Dr. Jefferson today after he had an episode of shortness of breath at [facility], where he walked from car into store and then couldn't catch his breath. When he saw Dr. Jefferson, he had labs done and went home, but then was called back and told to go to ER because of a problem with his blood work. He denies chest pain. Still feels short of breath with activity today. He feels like this all started when cold weather came in, if he goes outside without a jacket he gets winded and has to sit down to get his breath. He does use an inhaler at home, but doesn't recall being diagnosed with any lung disease. He initially denies any medical problems, but does note he had a CABG and takes multiple medications at home but isn't sure what they all are for. Source: patient, family Date seen by provider: May 12, 2023 Time Seen by Provider: 16:44 Attending Physician [facility] PCP Admitting Physician: Geraldine Sethi MD Attending Physician: Geraldine Sethi MD Consult Date of Admission May 12, 2023 at 14:03 Home Medications Home Medications Reviewed patient Home Medication Reconciliation performed by pharmacy medication reconciliations bioinformatics technician and/or nursing. Patients Allergies have been reviewed. Allergies Coded Allergies: No Known Drug Allergies (Unverified , 12/02/21) NGY-Igmuky-Lddywy Hx Patient Social History Marrital Status: Employed/Student: retired Smoking Status: Former Smoker Former smoker/When Quit: Apr 10, 1975 2nd Hand Smoke Exposure: No Recent Hopitalizations: No Alcohol Use?: No (no history of regular EtOH use, no drinking since high school) Immunizations Up To Date Influenza Vaccine Up-to-Date: No; Not Current First/Initial COVID19 Vaccinat: No Past Medical History PMHx: HTN Coronary artery disease s/p CABG SurgHx: CABG x 3 he can't recall if 2020 or 2021 Family Medical History Significant Family History: Other Conditions/Hx (Alzheimer, siblings) Review of Systems ([facility]) Constitutional: No fever EENTM: No nose congestion, No throat pain Respiratory: cough, short of breath Cardiovascular: No chest pain Gastrointestinal: No abdominal pain, No constipation, No diarrhea Genitourinary: No dysuria; hematuria (noted red urine this morning) Musculoskeletal: joint pain ("a few") Skin: No rash Reviewed Test Results Reviewed Test Results Radiology CXR: IMPRESSION: Prominent cardiomegaly with poststernotomy change. Central vascular congestion with some bi-basilar infiltrate and a small left pleural effusion. Physical Exam-([facility]) Physical Exam Vital Signs VS - Last 72 Hours, by Label 05/12/23 05/12/23 05/12/23 05/12/23 12:24 14:00 14:40 14:51 Temp 35.7 35.7 Pulse 48 46 50 Resp 18 18 B/P (MAP) 134/76 (95) 125/67 Pulse Ox 97 99 O2 Delivery Room Air Room Air Room Air 05/12/23 15:50 Temp 36.1 Pulse 48 Resp 25 B/P (MAP) 148/89 (108) Pulse Ox 98 O2 Delivery Room Air Capillary Refill : Less Than 3 Seconds General Appearance: WD/WN, no apparent distress Respiratory: rales (bases) Cardiovascular: regular rate, rhythm, no edema, no murmur Gastrointestinal: normal bowel sounds, non tender, soft Extremities: no pedal edema Neurologic/Psychiatric: alert, normal mood/affect Skin: normal color, warm/dry Assessment/Plan Assessment/Plan Admission Status: Inpatient Order (span 2 midnights) Reason for Inpatient Admission: NSTEMI (1) NSTEMI (non-ST elevated myocardial infarction) Status: Acute Assessment & Plan: Outpatient troponin elevated above 1, Cardiology consulted, aspirin, atorvastatin and enoxaparin ordered and plan for cath in the am. (2) Coronary artery disease Status: Chronic Assessment & Plan: Continue home asa, statin, ACEI, holding beta tony due to bradycardia. Qualifiers: Qualified Codes: I25.810 - Atherosclerosis of coronary artery bypass gra ft(s) without angina pectoris (3) HTN (hypertension) Status: Chronic Assessment & Plan: Resume home lisinopril. Holding clonidine as not filled recently and not requiring it for control at this time. Holding metoprolol due to bradycardia. (4) Hyperlipidemia Status: Chronic (5) DVT prophylaxis Status: Acute Assessment & Plan: Enoxaparin Clinical Quality Measures AMI/AHF: ASA po Prior to arrival: Yes GERALDINE SETHI MD May 12, 2023 16:48
[2023-05-12] MEDS ORDERED: RT-ALBUTEROL SULF 2.5 MG/3 ML PRE-MIX VIAL INH PRN (17:45)
[2023-05-12 20:00] VITALS: BP 150/86
[2023-05-12 23:30] VITALS: BP 151/94
[2023-05-13] VITALS (8 sets, daily range): BP systolic 115–154; BP diastolic 67–94
[2023-05-13 05:15] LABS: HEMATOCRIT 37 % (40-54); HEMOGLOBIN 11.9 g/dL (13.3-17.7); MEAN CORPUSCULAR HEMOGLOBIN 27 pg (25-34); MEAN CORPUSCULAR HGB CONC 33 g/dL (32-36); MEAN CORPUSCULAR VOLUME 83 fL (80-99); PLATELET COUNT 205 10^3/uL (130-400); WHITE BLOOD COUNT 6.5 10^3/uL (4.3-11.0)
[2023-05-13 05:32] LABS: POTASSIUM 3.4 MMOL/L (3.6-5.0)
[2023-05-13 05:33] LABS: CALCIUM 9.1 MG/DL (8.5-10.1)
[2023-05-13 05:37] LABS: CREATININE SERUM 1.61 MG/DL (0.60-1.30)
[2023-05-13 05:40] LABS: MAGNESIUM 1.9 MG/DL (1.6-2.4)
[2023-05-13] MEDS ORDERED: LIDOCAINE 1% INJ 20 ML VIAL ONE (06:37)
[2023-05-13] MEDS ORDERED: HEParin (CATH LAB) 2,000 ML IV ONE (06:38)
[2023-05-13] MEDS ORDERED: NS IV 1000 ML 1,000 ML ONE ×2 (06:38→08:55)
[2023-05-13] MEDS ORDERED: fentaNYL INJECTION 100 MCG/2 ML VIAL ONE (07:32)
[2023-05-13] MEDS ORDERED: MIDAZOLAM INJ 5 MG/5 ML VIAL ONE (07:32)
--- NOTE | 2023-05-13 08:16 | Cardiac Procedure Note-CS/ASA ---
Pre-Procedure Note Pre-Op Procedure Note Date of Available H&P: May 13, 2023 Date H&P Reviewed: May 13, 2023 Time H&P Reviewed: 08:16 History & Physical: H&P Reviewed, Patient Examed, No changes noted Pre-Operative Diagnosis: Non-ST elevation myocardial infarction Moderate Sedation PreProcedure Time 08:16 ASA Score 3 Airway Lungs Heart ASA score ASA 1: a normal healthy patient ASA 2: a patient with a mild systemic disease (mid diabetes, controlled hypertension, obesity ASA 3: a patient with a severe systemic disease that limits activity (angina, COPD, prior Myocardial infarction) ASA 4: a patient with an incapacitating disease that is a constant threat to life (CHF, renal failure) ASA 5: a moribund patient not expected to survive 24 hrs. (ruptured aneurysm) ASA 6: a declared brain- patient whose organs are being harvested. For emergent operations, add the letter E after the classification Mallampati Classification Grade 3 Sedation Plan Analgesia, Amnesia, Plan communicated to team members, Discussed options with patient/fam, Discussed risks with patient/fam The patient is an appropriate candidate to undergo the planned procedure, sedation, and anesthesia. The patient immediately re-assessed prior to indication. BRAVO CLARK MD May 13, 2023 08:16
[2023-05-13] MEDS ORDERED: NON-FORMULARY MEDICATION 1 EA EA (Fluoxetine HCl 40 MG) PO SCH (09:00)
[2023-05-13] MEDS ORDERED: PATIENT MAY USE OWN MEDS, ALL PO SCH (09:00)
[2023-05-13] MEDS ORDERED: CLOPIDOGREL 300 MG TABLET PO NR (09:00)
[2023-05-13] MEDS ORDERED: FUROSEMIDE INJECTION 40 MG/4 ML VIAL IVP SCH (09:00)
[2023-05-13] MEDS ORDERED: ASPIRIN enteric coated 81MG TABLET PO SCH (09:00)
--- NOTE | 2023-05-13 09:00 | Cardiac Cath Report ---
Cardiac Cath Report Physician (s)/[employer] Pipe [employer]itter (s) Physician BRAVO CLARK MD Pre-Procedure Diagnosis Pre-Procedure Diagnosis: Non-ST elevation myocardial infarction Post-Procedure Note Procedure Start Date: May 13, 2023 Name of Procedure: Left heart catheterization Vein graft angiogram TORRES angiogram Findings/Procedure Note PROCEDURE NOTE: 67-year-old gentleman with severe multivessel coronary artery disease had CABG in December 2021, admitted with non-ST elevation myocardial infarction, cardiac catheterization was advised After explaining the procedure to the patient, all pros and cons were explained, all questions were answered. The patient signed the consent and then he was placed on the cardiac catheterization laboratory. Groin was prepped SL fashion local anesthesia was used. Sheath placed in the right femoral artery. Lizzy right and left catheter were used to access the coronary system.Vein Graft evaluated. TORRES evaluated. Lizzy right prolapsed to the left ventricular cavity, pressure was measured no left ventriculogram was done At the end of the procedure the sheath was removed. Closure device was deployed FINDINGS: Hemodynamics LV 158/42, end-diastolic pressure of 42 Aorta 164/77 mean of 109 ANATOMY: Left Main has 50% distal stenosis Left Anterior Descending has 50% ostial stenosis occluded at the midportion the TORRES to the LAD is patent Left Circumflex is moderate in size first obtuse marginal branch has severe proximal stenosis Right Coronary Artery is totally occluded at the midportion receiving collaterals from the left system TORRES to LAD is patent with good flow at the distal LAD Vein Graft evaluation showed 1 marker of 1 vein graft, patient is known to have CABG x 4 so I am assuming that he has multiple veins bifurcating from that origin. They are all occluded and there is 1 vein graft filling retrograde from the left system injection LV Gram was not done, elevated left ventricular end-diastolic pressure, echocardiogram showed ejection fraction 30% CONCLUSION: Totally occluded mid LAD with patent TORRES to the LAD good flow distally Totally occluded dominant right coronary artery receiving collaterals from the left system Patient had 3 vein graft that are all occluded presumably to the right coronary artery and circumflex system. Severe disease in the proximal obtuse marginal branch, may require atherectomy and stenting Severe cardiomyopathy, ischemic, ejection fraction 30% by echo, left ventricular end-diastolic pressure is 42 DISCUSSION AND RECOMMENDATION: I will start maximizing medical therapy and forward copy of his angiogram for evaluation for atherectomy and high risk intervention to the circumflex system Anesthesia Type: Conscious Sedation Estimated blood loss (mL): 15 ml Contrast Amount: 30 ml Total Radiation Dose: 315 mGy Post-Procedure Diagnosis Post-operative diagnosis: Non-ST elevation myocardial infarction Coronary artery disease Congestive heart failure, acute left ventricular systolic dysfunction, ischemic cardiomyopathy Hypertension Hyperlipidemia BRAVO CLARK MD May 13, 2023 09:00
--- NOTE | 2023-05-13 09:07 | Cardiology Progress Note ---
Subjective Date Seen by Provider: May 13, 2023 Time Seen by Provider: 09:03 Subjective/Events-last exam Patient was seen at bedside, feeling better, less chest pain. No palpitation. Objective-Cardiology Exam Last Set of Vital Signs Vital Signs 05/13/23 05/13/23 05/13/23 00:21 04:45 07:00 Temp 36.2 Pulse 53 Resp 21 B/P (MAP) 150/80 (103) Pulse Ox 98 O2 Delivery Room Air I&O Intake and Output 05/12/23 23:59 Intake Total 800 ml Output Total 1375 ml Balance -575 ml Intake Oral 800 ml Output Urine Total 1375 ml Daily Weight Change Yes, 2-13 lbs General: Alert, Oriented X3, Cooperative HEENT: Atraumatic, PERRLA Neck: Supple, No JVD, No Thyromegaly Lungs: Clear to Auscultation, Normal Air Movement Heart: Regular Rate, Normal S1, Normal S2, Other (Systolic murmur at the left sternal border) Abdomen: Normal Bowel Sounds, Soft, No Tenderness, No Hepatosplenomegaly, No Masses Extremities: No Clubbing, No Cyanosis, No Edema, Normal Pulses, No Tenderness/Swelling Skin: No Rashes, No Breakdown, No Significant Lesion Neuro: Normal Gait, Normal Speech, Strength at 5/5 X4 Ext, Normal Tone, Sensation Intact Psych/Mental Status: Mental Status NL, Mood NL Results Lab Laboratory Tests 05/13/23 05:04 Troponin prior to the admission was 1.7 A/P-Cardiology Admission Diagnosis Non-ST elevation myocardial infarction Coronary artery disease Congestive heart failure, acute left ventricular systolic dysfunction, ischemic cardiomyopathy Hypertension Assessment/Plan Chest pain, resembling accelerating angina. Non-ST elevation myocardial infarction, had elevation in troponin, accelerating angina. Cardiac catheterization was done showing multivessel disease as described below Coronary artery disease- NSTEMI in November 2021, underwent C December 03, 2021 showing sever multivessel CAD with total occlusion of the mid LAD reconstructed by collateral. Total occlusion of RCA, reconstructed by collateral. Severe stenosis at patricia prox LAD and moderate to severe stenosis of the prox first obtuse marginal branch with mild ot moderate disease in the left main. Was referred to [facility] and underwent bypass x [address] Sampson on 12/09/21. Left heart catheterization was done on May 13, 2023 showing occluded 3 vein graft and patent TORRES to the LAD. The right coronary artery is occluded receiving collaterals from the left system, the circumflex artery has severe stenosis with calcified lesion in the proximal portion of the obtuse marginal branch that will require atherectomy and stenting. It will be staged and done at the tertiary care center 2D echo was done on April 01, 2022 with normal LV size, ejection fraction 40 to 45% left atrial dilatation 4.87 cm, aortic valve sclerosis with mild aortic regurgitation, PA pressure 15 to 20 mmHg Congestive heart failure, chronic compensated left ventricular systolic dysfunction, ejection fraction 40 to 45%, ischemic cardiomyopathy. possible PTCA Elevated BNP, congestive heart failure probably acute left ventricular systolic dysfunction, ischemic cardiomyopathy, will give Lasix 40 mg today and restart 20 mg daily Unable to tolerate beta-blockers secondary to severe bradycardia 2D echo done on May 12, 2023 with ejection fraction 25 to 30%, moderate LVH, pulmonary hypertension with PA pressure 40 mmHg LVEDP during cardiac catheterization was 42 Patient has been maintained on lisinopril, I will add isosorbide, Aldactone and Jardiance Started on aggressive diuresis with Lasix Patient will require pacemaker/ICD implantation after correction of his coronary anatomy Planning for LifeVest Syncope, resulted in injury to his shoulder, no further syncopal episodes. Had episode of severe bradycardia. Patient reports has been having increased episodes of dizziness/lightheadedness, mainly when up moving around. Likely having orthostatic hypotension, probably Sinus node dysfunction with severe bradycardia, hospitalized on October 06, 2021. Heart rate is better and his symptoms are better. If patient becomes symptomatic again, consider event monitor. Hypertension, monitor renal function closely Maintained on amlodipine 10 mg daily, clonidine 0.2 milligrams once a day, doxazosin 4 mg daily, hydralazine 25 mg 3 times a day, hydrochlorothiazide 25 mg daily, lisinopril 40 mg daily. Intolerant to beta-blockers due to 2 episodes of severe bradycardia. I will increase hydralazine to 50mg TID. Hyperlipidemia, maintained on Lipitor 40 mg daily, Zetia 10 mg daily I will increase Lipitor to 80 mg daily, planning to add Repatha as an outpatient BMI 27, we discussed weight loss. BRAVO CLARK MD May 13, 2023 09:07
[2023-05-13] MEDS ORDERED: FUROSEMIDE INJECTION 40 MG/4 ML VIAL IVP NR (09:30)
[2023-05-13] MEDS: ISOSORBIDE MONONITRATE 30 MG TABLET PO SCH (09:57)
[2023-05-13] MEDS: ASPIRIN enteric coated 81MG TABLET PO SCH (09:57)
[2023-05-13] MEDS: PANTOPRAZOLE 40 MG TABLET PO SCH (09:58)
[2023-05-13] MEDS: amLODIPine 10 MG TABLET PO SCH (09:58)
[2023-05-13] MEDS: NS IV 1000 ML 1,000 ML IV SCH ×2 (09:58→19:00)
[2023-05-13] MEDS: EMPAGLIFLOZIN 10 MG TABLET PO SCH (09:58)
[2023-05-13] MEDS: FLUoxetine 20 MG CAPSULE PO SCH (09:58)
[2023-05-13] MEDS: SPIRONOLACTONE 25 MG TABLET PO SCH (09:58)
[2023-05-13] MEDS ORDERED: ENOXAPARIN 40 MG/0.4 ML SYRINGE SQ SCH (13:00)
[2023-05-13] MEDS: FUROSEMIDE INJECTION 40 MG/4 ML VIAL IVP SCH (17:21)
--- NOTE | 2023-05-13 17:29 | Progress Note ---
Subjective Subjective/Events-last exam Patient states he is feeling okay post-cath. Denies chest pain. Objective Exam Last Set of Vital Signs Vital Signs Date Time Temp Pulse Resp B/P (MAP) Pulse Ox O2 Delivery O2 Flow Rate FiO2 05/13/23 16:07 36.4 49 19 115/67 (83) Room Air 05/13/23 15:11 100 Capillary Refill : Less Than 3 Seconds I&O Intake and Output 05/12/23 23:59 Intake Total 800 ml Output Total 1375 ml Balance -575 ml Intake Oral 800 ml Output Urine Total 1375 ml Daily Weight Change Yes, 2-13 lbs General: Alert, No Acute Distress Lungs: Clear to Auscultation, Normal Air Movement Heart: Other (bradycardic) Abdomen: Normal Bowel Sounds, Soft Extremities: No Edema Neuro: Normal Speech Psych/Mental Status: Mood NL Results/Procedures Lab Laboratory Tests 05/13/23 05:04: White Blood Count 6.5, Red Blood Count 4.39, Hemoglobin 11.9L, Hematocrit 37L, Mean Corpuscular Volume 83, Mean Corpuscular Hemoglobin 27, Mean Corpuscular Hemoglobin Concent 33, Red Cell Distribution Width 15.9H, Platelet Count 205, Mean Platelet Volume 13.0H, Sodium Level 139, Potassium Level 3.4L, Chloride Level 104, Carbon Dioxide Level 23, Anion Gap 12, Blood Urea Nitrogen 27H, Creatinine 1.61H, Estimat Glomerular Filtration Rate 47, BUN/Creatinine Ratio 17, Glucose Level 67L, Calcium Level 9.1, Magnesium Level 1.9, Triglycerides Level 90, Cholesterol Level 184, LDL Cholesterol Direct 148H, VLDL Cholesterol 18, HDL Cholesterol 34L Radiology CXR: IMPRESSION: Prominent cardiomegaly with poststernotomy change. Central vascular congestion with some bi-basilar infiltrate and a small left pleural effusion. Assessment/Plan Assessment/Plan (1) NSTEMI (non-ST elevated myocardial infarction) Status: Acute Assessment & Plan: Outpatient troponin elevated above 1, Cardiology consulted, aspirin, atorvastatin and enoxaparin ordered cardiac cath done this am, patient's notes they will have to follow up at [facility] again. Appreciate Cardiology recommendations. (2) Coronary artery disease Status: Chronic Assessment & Plan: Continue home asa, statin, ACEI, holding beta tony due to bradycardia. Qualifiers: Qualified Codes: I25.810 - Atherosclerosis of coronary artery bypass graft(s) without angina pectoris (3) HTN (hypertension) Status: Chronic Assessment & Plan: Resume home lisinopril. Holding clonidine as not filled recently and not requiring it for control at this time. Holding metoprolol due to bradycardia. 05/13 Cardiology adjusting meds given bradycardia and hypertension. (4) Hyperlipidemia Status: Chronic Assessment & Plan: Continue statin, will need Repatha outpatient. (5) DVT prophylaxis Status: Acute Assessment & Plan: Enoxaparin Clinical Quality Measures AMI/AHF: ASA po Prior to arrival: Yes GERALDINE ZHENG MD May 13, 2023 17:29
[2023-05-14 05:00] LABS: HEMATOCRIT 35 % (40-54); HEMOGLOBIN 11.4 g/dL (13.3-17.7); MEAN CORPUSCULAR HEMOGLOBIN 27 pg (25-34); MEAN CORPUSCULAR HGB CONC 33 g/dL (32-36); MEAN CORPUSCULAR VOLUME 82 fL (80-99); MEAN PLATELET VOLUME 12.9 fL (9.0-12.2); PLATELET COUNT 220 10^3/uL (130-400)
[2023-05-14] MEDS: NS IV 1000 ML 1,000 ML IV SCH (05:00)
[2023-05-14 05:15] LABS: CALCIUM 8.7 MG/DL (8.5-10.1)
[2023-05-14 05:20] LABS: CREATININE SERUM 1.66 MG/DL (0.60-1.30)
[2023-05-14] MEDS: FUROSEMIDE INJECTION 40 MG/4 ML VIAL IVP SCH (06:31)
[2023-05-14] MEDS ORDERED: POTASSIUM CHLORIDE 10 MEQ TABLET PO SCH (07:00)
[2023-05-14] MEDS ORDERED: POTASSIUM CHLORIDE 20 MEQ TABLET PO NR ×2 (07:00→09:00)
[2023-05-14 07:39] VITALS: BP 154/94
--- NOTE | 2023-05-14 08:13 | Cardiology Progress Note ---
Subjective Date Seen by Provider: May 14, 2023 Time Seen by Provider: 08:10 Subjective/Events-last exam Patient was seen at bedside, laying down comfortably. No new complain Objective-Cardiology Exam Last Set of Vital Signs Vital Signs 05/14/23 07:39 Temp 36.1 Pulse 57 Resp 19 B/P (MAP) 154/94 (114) Pulse Ox 98 O2 Delivery Room Air I&O Intake and Output 05/13/23 23:59 Intake Total 1840 ml Output Total 2750 ml Balance -910 ml Intake Oral 1840 ml Output Urine Total 2750 ml # Bowel Movements 2 General: Alert, Oriented X3, Cooperative, No Acute Distress HEENT: Atraumatic, PERRLA Neck: Supple, No JVD, No Thyromegaly Lungs: Clear to Auscultation, Normal Air Movement Heart: Regular Rate, Normal S1, Normal S2, Other (bradycardic) Abdomen: Normal Bowel Sounds, Soft Extremities: No Clubbing, No Cyanosis, No Edema Skin: No Rashes, No Breakdown, No Significant Lesion Neuro: Normal Speech Psych/Mental Status: Mood NL Results Lab Laboratory Tests 05/14/23 04:44 A/P-Cardiology Admission Diagnosis Non-ST elevation myocardial infarction Coronary artery disease Congestive heart failure, acute left ventricular systolic dysfunction, ischemic cardiomyopathy Hypertension Assessment/Plan Chest pain, resembling accelerating angina. Non-ST elevation myocardial infarction, had elevation in troponin, accelerating angina. Cardiac catheterization was done showing multivessel disease as described below Coronary artery disease- NSTEMI in November 2021, underwent C December 03, 2021 showing sever multivessel CAD with total occlusion of the mid LAD reconstructed by collateral. Total occlusion of RCA, reconstructed by collateral. Severe stenosis at [facility] prox LAD and moderate to severe stenosis of the prox first obtuse marginal branch with mild ot moderate disease in the left main. Was referred to [facility] and underwent bypass x [address] Sampson on 12/09/21. Left heart catheterization was done on May 13, 2023 showing occluded 3 vein graft and patent TORRES to the LAD. The right coronary artery is occluded receiving collaterals from the left system, the circumflex artery has severe stenosis with calcified lesion in the proximal portion of the obtuse marginal br anch that will require atherectomy and stenting. Patient will be scheduled to have cardiac catheterization at [facility] with Dr. Song as an outpatient Hypokalemia, secondary to aggressive diuresis, replace and monitor 2D echo was done on April 01, 2022 with normal LV size, ejection fraction 40 to 45% left atrial dilatation 4.87 cm, aortic valve sclerosis with mild aortic regurgitation, PA pressure 15 to 20 mmHg 2D echo done on May 13, 2023 with ejection fraction 25 to 30 mmHg, PA pres sure 45 to 50 mmHg, biatrial enlargement, mild mitral regurgitation, mild aortic regurgitation with aortic valve sclerosis Congestive heart failure, chronic compensated left ventricular systolic dysf unction, ejection fraction 40 to 45%, ischemic cardiomyopathy. possible PTCA Elevated BNP, congestive heart failure probably acute left ventricular systolic dysfunction, ischemic cardiomyopathy, will give Lasix 40 mg today and restart 20 mg daily Unable to tolerate beta-blockers secondary to severe bradycardia 2D echo done on May 12, 2023 with ejection fraction 25 to 30%, moderate LVH, pulmonary hypertension with PA pressure 40 mmHg LVEDP during cardiac catheterization was 42 Patient has been maintained on lisinopril, I will add isosorbide, Aldactone and Jardiance Started on aggressive diuresis with Lasix Patient will require pacemaker/ICD implantation after correction of his coronary anatomy Planning for LifeVest Syncope, resulted in injury to his shoulder, no further syncopal episodes. Had episode of severe bradycardia. Patient reports has been having increased episodes of dizziness/lightheadedness, mainly when up moving around. Likely having orthostatic hypotension, probably Sinus node dysfunction with severe bradycardia, hospitalized on October 06, 2021. Heart rate is better and his symptoms are better. If patient becomes symptomatic again, consider event monitor. Hypertension, monitor renal function closely Maintained on amlodipine 10 mg daily, clonidine 0.2 milligrams once a day, doxazosin 4 mg daily, hydralazine 25 mg 3 times a day, hydrochlorothiazide 25 mg daily, lisinopril 40 mg daily. Intolerant to beta-blockers due to 2 episodes of severe bradycardia. I will inc rease hydralazine to 50mg TID. Hyperlipidemia, maintained on Lipitor 40 mg daily, Zetia 10 mg daily I will increase Lipitor to 80 mg daily, planning to add Repatha as an outpatient BMI 27, we discussed weight loss. BRAVO CLARK MD May 14, 2023 08:13
[2023-05-14] MEDS: EMPAGLIFLOZIN 10 MG TABLET PO SCH (08:33)
[2023-05-14] MEDS: PANTOPRAZOLE 40 MG TABLET PO SCH (08:33)
[2023-05-14] MEDS: ISOSORBIDE MONONITRATE 30 MG TABLET PO SCH (08:34)
[2023-05-14] MEDS: ASPIRIN enteric coated 81MG TABLET PO SCH (08:34)
[2023-05-14] MEDS: amLODIPine 10 MG TABLET PO SCH (08:34)
[2023-05-14] MEDS: FLUoxetine 20 MG CAPSULE PO SCH (08:34)
[2023-05-14] MEDS: SPIRONOLACTONE 25 MG TABLET PO SCH (08:34)
[2023-05-14] MEDS ORDERED: CLOPIDOGREL 75 MG TABLET PO SCH (09:00)
[2023-05-14] MEDS ORDERED: EMPA10TA PO (12:19)
[2023-05-14] MEDS ORDERED: SPIR25TA5 PO (12:19)
[2023-05-14] MEDS ORDERED: ISOS30TA82 PO (12:19)
[2023-05-14] MEDS ORDERED: LISI40TA9 PO (12:19)
[2023-05-14] MEDS ORDERED: FURO40TA4 PO (12:19)
[2023-05-14] MEDS ORDERED: CLOP75TA28 PO (12:19)
[2023-05-14] MEDS ORDERED: AMLO-251 PO (12:19)
[2023-05-14] MEDS ORDERED: ATOR80TA76 PO (12:19)
[2023-05-14 12:37] VITALS: BP 155/92
--- NOTE | 2023-05-14 14:12 | Discharge Summary ---
Discharge [email or web address] Discharge Medications New, Converted or Re-Newed RX: Transmitted to Pharmacy New Medications: Amlodipine Besylate (Amlodipine Besylate) 10 Mg Tablet 10 MG PO DAILY, #30 TAB 0 Refills Atorvastatin Calcium (Atorvastatin Calcium) 80 Mg Tablet 80 MG PO HS, #30 TAB 0 Refills Clopidogrel Bisulfate (Clopidogrel) 75 Mg Tablet 75 MG PO DAILY, #30 TAB 0 Refills Empagliflozin (Jardiance) 10 Mg Tablet 10 MG PO DAILY, #30 TAB 0 Refills Isosorbide Mononitrate (Isosorbide Mononitrate ER) 30 Mg Tab.er.24h 30 MG PO DAILY, #30 TAB 0 Refills Spironolactone (Spironolactone) 25 Mg Tablet 25 MG PO DAILY, #30 TAB 0 Refills Continued Medications: Albuterol Sulfate (Ventolin Hfa) 1 Puff Puff 2 PUFF INH Q6H PRN for SHORTNESS OF BREATH, EA Allopurinol (Allopurinol) 100 Mg Tablet 100 MG PO BID, TAB LAST FILLED 10-06-2022 #180/90 DAY SUPPLY Aspirin (Aspirin) 81 Mg Tab.chew 81 MG PO DAILY, TAB LAST FILLED 10-06-2022 #90/90 DAY SUPPLY Cetirizine HCl (Cetirizine HCl) 10 Mg Tablet 10 MG PO DAILY, TAB LAST FILLED 10-06-2022 #90/90 DAY SUPPLY Fluoxetine HCl (Fluoxetine HCl) 40 Mg Capsule 40 MG PO DAILY, CAP LAST FILLED 10-06-2022 #90/90 DAY SUPPLY Furosemide (Furosemide) 40 Mg Tablet 40 MG PO DAILY, #30 TAB 0 Refills (This prescription has been renewed) LAST FILLED 10-06-2022 #90/90 DAY SUPPLY Lisinopril (Lisinopril) 40 Mg Tablet 40 MG PO DAILY, #30 TAB 0 Refills (This prescription has been renewed) LAST FILLED 10-06-2022 #90/90 DAY SUPPLY Potassium Chloride (Potassium Chloride) 20 Meq Tablet.er 20 MEQ PO DAILY, TAB LAST FILLED 10-06-2022 #90/90 DAY SUPPLY Discontinued Medications: Atorvastatin Calcium (Atorvastatin Calcium) 40 Mg Tablet 40 MG PO DAILY, TAB LAST FILLED 10-06-2022 #90/90 DAY SUPPLY Clonidine HCl (Clonidine HCl) 0.2 Mg Tablet 0.2 MG PO DAILY, TAB LAST FILLED 10-06-2022 #90/90 DAY SUPPLY Metoprolol Tartrate (Metoprolol Tartrate) 25 Mg Tablet 25 MG PO BID, TAB LAST FILLED 10-06-2022 #180/90 DAY SUPPLY Patient Instructions Goal/Follow Up Appt: Follow up with primary doctor within a week of discharge. Follow up with Cardiology as directed. Activity & Diet Discharge Diet: Cardiac Diet GERALDINE ZHENG MD May 14, 2023 14:12
--- NOTE | 2023-05-14 14:13 | Discharge Summary ---
Discharge Summary Hospital Course Problems/Diagnosis: (1) NSTEMI (non-ST elevated myocardial infarction) Status: Acute Assessment & Plan: Outpatient troponin elevated above 1, Cardiology consulted, aspirin, atorvastatin and enoxaparin ordered cardiac cath done showing occluded 3 vein graft and patent Mitchell to patricia LAD, RCA occluded, circumflex with severe stenosis that will require atherectomy and stenting, will be scheduled to have staged interventions outpatient at [facility]. Appreciate Cardiology recommendations. (2) Coronary artery disease Status: Chronic Assessment & Plan: Continue home asa, statin, ACEI, holding beta tony due to bradycardia. Qualifiers: Qualified Codes: I25.810 - Atherosclerosis of coronary artery bypass graft(s) without angina pectoris (3) HTN (hypertension) Status: Chronic Assessment & Plan: Resume home lisinopril. Holding clonidine as not filled recently and not requiring it for control at this time. Holding metoprolol due to bradycardia. (4) Hyperlipidemia Status: Chronic Assessment & Plan: Increased statin, will need Repatha outpatient per Cardiology. (5) CHF (congestive heart failure) Status: Chronic Assessment & Plan: Given Lasix 40 mg and restarted 20 mg daily Unable to tolerate beta-blockers secondary to severe bradycardia 2D echo done on May 12, 2023 with ejection fraction 25 to 30%, moderate LVH, pulmonary hypertension with PA pressure 40 mmHg, added isosorbide, Aldactone and Jardiance to his lisinopril from home. He will require pacemaker/ICD implantation after correction of his coronary an atomy, LifeVest was placed prior to d/c. Qualifiers: Qualified Codes: I50.22 - Chronic systolic (congestive) heart failure Hospital Course Date of Admission: May 12, 2023 at 14:03 Admission Diagnosis : [facility] Date of Discharge: 05/14/23 Discharge Diagnosis: See problem list Hospital Course: See problem list Labs and Pending Lab Test: Laboratory Tests 05/14/23 04:44: White Blood Count 6.0, Red Blood Count 4.24L, Hemoglobin 11.4L, Hematocrit 35L, Mean Corpuscular Volume 82, Mean Corpuscular Hemoglobin 27, Mean Corpuscular Hemoglobin Concent 33, Red Cell Distribution Width 15.7H, Platelet Count 220, Mean Platelet Volume 12.9H, Sodium Level 137, Potassium Level 3.0L, Chloride Level 101, Carbon Dioxide Level 26, Anion Gap 10, Blood Urea Nitrogen 27H, Creatinine 1.66H, Estimat Glomerular Filtration Rate 45, BUN/Creatinine Ratio 16, Glucose Level 81, Calcium Level 8.7 Home Meds Active Isosorbide Mononitrate ER (Isosorbide Mononitrate) 30 Mg Tab.er.24h 30 Mg PO DAILY Clopidogrel (Clopidogrel Bisulfate) 75 Mg Tablet 75 Mg PO DAILY Jardiance (Empagliflozin) 10 Mg Tablet 10 Mg PO DAILY Spironolactone 25 Mg Tablet 25 Mg PO DAILY Amlodipine Besylate 10 Mg Tablet 10 Mg PO DAILY Atorvastatin Calcium 80 Mg Tablet 80 Mg PO HS Furosemide 40 Mg Tablet 40 Mg PO DAILY LAST FILLED 10-06-2022 #90/ DAY SUPPLY Lisinopril 40 Mg Tablet 40 Mg PO DAILY LAST FILLED 10-06-2022 #90 DAY SUPPLY Reported Potassium Chloride 20 Meq Tablet.er 20 Meq PO DAILY LAST FILLED 10-06-2022 #90/ DAY SUPPLY Ventolin Hfa (Albuterol Sulfate) 1 Puff Puff 2 Puff INH Q6H PRN Aspirin 81 Mg Tab.chew 81 Mg PO DAILY LAST FILLED 10-06-2022 #90/90 DAY SUPPLY Fluoxetine HCl 40 Mg Capsule 40 Mg PO DAILY LAST FILLED 10-06-2022 #90/90 DAY SUPPLY Allopurinol 100 Mg Tablet 100 Mg PO BID LAST FILLED 10-06-2022 #180/ DAY SUPPLY Cetirizine HCl 10 Mg Tablet 10 Mg PO DAILY LAST FILLED 10-06-2022 #90/90 DAY SUPPLY Assessment/Pt DC Instructions Follow up with primary doctor within a week of discharge. Follow up with Cardiology as directed. Discharge Diet: Cardiac Diet Discharge Physical Examination Allergies: Coded Allergies: No Known Drug Allergies (Unverified , 12/02/21) General Appearance: No Apparent Distress Respiratory: Lungs Clear Gastrointestinal: Normal Bowel Sounds Neurologic/Psychiatric: Alert, Normal Mood/Affect Clinical Quality Measures AMI/AHF: ASA po Prior to arrival: Yes GERALDINE ZHENG MD May 14, 2023 14:13
== END 2023-05-14 15:30 | disposition home or self-care (01) | DRG 281 ==
LOC: EDUNIT# 12:19 → ER 12:21 → CSD 14:03
PROVIDERS: ADMIT Family Medicine; ATTEND Family Medicine
PROC: 4A023N7 Measurement of Cardiac Sampling and Pressure, Left Heart, Percutaneous Approach (ICD-10-PCS; principal; 2023-05-13)
PROC: B2111ZZ Fluoroscopy of Multiple Coronary Arteries using Low Osmolar Contrast (ICD-10-PCS; 2023-05-13)
PROC: B2181ZZ Fluoroscopy of Left Internal Mammary Bypass Graft using Low Osmolar Contrast (ICD-10-PCS; 2023-05-13)
PROC: B2131ZZ Fluoroscopy of Multiple Coronary Artery Bypass Grafts using Low Osmolar Contrast (ICD-10-PCS; 2023-05-13)
DX: I21.4 Non-ST elevation (NSTEMI) myocardial infarction (principal); I50.22 Chronic systolic (congestive) heart failure; I11.0 Hypertensive heart disease with heart failure; I25.110 Atherosclerotic heart disease of native coronary artery with unstable angina pectoris; Z95.1 Presence of aortocoronary bypass graft; Z87.891 Personal history of nicotine dependence; Z79.82 Long term (current) use of aspirin; Z79.899 Other long term (current) drug therapy; E78.00 Pure hypercholesterolemia, unspecified; K21.9 Gastro-esophageal reflux disease without esophagitis; F41.9 Anxiety disorder, unspecified; I25.5 Ischemic cardiomyopathy; E87.6 Hypokalemia; T50.2X5A Adverse effect of carbonic-anhydrase inhibitors, benzothiadiazides and other diuretics, initial encounter; I49.5 Sick sinus syndrome
CPT/HCPCS: 36415; 71045; 80048; 80061; 83735; 85027; 93005; 93041; 93306; 93459; 94760; 96372

== ENCOUNTER → 2023-05-12 | Outpatient (CLI) | payer MEDICARE ==
[~2023-05-12] MED LIST changes: +ASPI-999 PO; +ATOR40TA70 PO; +ATOR80TA76 PO; +CLOP75TA28 PO; +EMPA10TA PO; +FURO40TA4 PO; +ISOS30TA82 PO; +METO-333 PO; +POTA-330 PO; +RT-ALBUINH INH; +SPIR25TA5 PO
[2023-05-12 11:00] LABS: HEMATOCRIT 39 % (40-54); HEMOGLOBIN 12.6 g/dL (13.3-17.7); MEAN CORPUSCULAR HEMOGLOBIN 27 pg (25-34); MEAN CORPUSCULAR HGB CONC 32 g/dL (32-36); MEAN CORPUSCULAR VOLUME 84 fL (80-99); MEAN PLATELET VOLUME 12.6 fL (9.0-12.2); PLATELET COUNT 251 10^3/uL (130-400); WHITE BLOOD COUNT 7.6 10^3/uL (4.3-11.0)
[2023-05-12 11:17] LABS: POTASSIUM 3.8 MMOL/L (3.6-5.0)
[2023-05-12 11:18] LABS: ALBUMIN 3.9 GM/DL (3.2-4.5)
[2023-05-12 11:19] LABS: CALCIUM 9.8 MG/DL (8.5-10.1)
[2023-05-12 11:20] LABS: INR 1.2 (0.8-1.4); PROTHROMBIN TIME PATIENT 15.5 SEC (12.2-14.7); TOTAL PROTEIN 7.4 GM/DL (6.4-8.2)
[2023-05-12 11:22] LABS: BILIRUBIN,TOTAL 2.6 MG/DL (0.1-1.0)
[2023-05-12 11:24] LABS: CREATININE SERUM 1.62 MG/DL (0.60-1.30)
== END ==
LOC: LAB 10:44
PROVIDERS: ATTEND Physician Assistant
DX: I10 Essential (primary) hypertension (principal); I25.10 Atherosclerotic heart disease of native coronary artery without angina pectoris; R07.89 Other chest pain
CPT/HCPCS: 36415; 80053; 80061; 83880; 84443; 84484; 85027; 85610; 85730